=== PATIENT | female | born 1985 | race Caucasian/White ===

== ENCOUNTER 2021-11-09 12:27 | Emergency (ER) | payer MEDICAID, SELFPAY ==
[2021-11-09 12:32] VITALS: BP 136/90; PULSE 114; RESP 18; TEMP 35.8; O2SAT 97; BMI 35.2
--- NOTE | 2021-11-09 13:14 | PC.NURSE ---
labs collected by lab
--- NOTE | 2021-11-09 13:14 | ED.GENADULT ---
HPI - General Adult General Time Seen by Provider: 13:14 Date Seen: 11/09/21 Chief complaint: Abdominal Pain Stated complaint: Liver damage, stomach pain Time Seen by Provider: 11/09/21 12:37 Source: patient History of Present Illness HPI narrative: Family is a 36-year-old female past medical history includes alcohol abuse presents to the emergency department with mother with abdominal pain. Patient states that her last drink was about a month ago, she has no history of withdrawals or withdrawal seizures. She saw her primary care provider 2 weeks ago, she wanted to be prescribed naltrexone but when she checked her liver function tests they were elevated she did not start the medication, she was taken off all her [id number] medications. She stated that if you develop any abdominal pain nausea vomiting to be seen in the emergency department. Patient states yesterday around dinner time she developed some epigastric pain, pain is bloating sensation, no radiation, she denies any nausea vomiting, she has been eating and drinking., she does smoke half a pack every 2 days, no other drug use, she denies any bloody or black stools, she had a bowel movement today which was normal. She denies any urinary complaints. She has no upper respiratory complaints, she denies any chest pain or shortness of breath, she has not had any fevers chills myalgias arthralgias. No sick contacts. She called the RN instructed her to come to the emergency department. Related Data Home Medications Medication Instructions Recorded Confirmed hydroxyzine HCl 10 mg tablet mg 11/09/21 Previous Rx's Medication Instructions Recorded pantoprazole 40 mg tablet,delayed 40 mg PO DAILY #10 tab 11/09/21 release (Protonix) Allergies Allergy/AdvReac Type Severity Reaction Status Date / Time No Known Drug Allergies Allergy Verified 11/09/21 12:36 Review of Systems Status of ROS: Reports: 10 or more systems reviewed and unremarkable except as noted in History and below PFSH PFS Social History Smoking Status: Unknown if ever smoked Non-prescribed substance use: denies use service: No Exam Narrative: Exam Narrative: General: Nontoxic in appearance, no apparent distress HEENT: Pupils equal round and reactive to light conjunctiva normal, extraocular muscles intact Neck: Supple, no lymphadenopathy Lungs: Clear to auscultation bilaterally Heart: Sinus tachycardia Abdomen: Distended, soft, bowel sounds normal, mild tenderness to palpation in the lower epigastric region, no rebound or guarding Muscle skeletal: No lower extremity edema, +5 strength upper lower extremities : Neuro alert awake and oriented x3, gait within normal limits Psych: Mood and affect normal Const: Vital Signs, click to edit/add: Vital Signs - 24 hr 11/09/21 12:32 Temperature 96.4 F L Pulse Rate [Pulse Oximeter] 114 H Respiratory Rate 18 Blood Pressure [Ri ght Upper Arm] 136/90 H Pulse Oximetry 97 Course Course Hospital Course: 1:00 PM: AIDET performed, vitals show mild tachycardia, no signs of withdrawal, patient has been eating and drinking normally, suspect a gastritis, less likely gallbladder or pancreatitis. Patient wants limited medications at this time, will give her a GI cocktail, and check her LFTs, lipase, CBC, CRP, urinalysis urine test. We will await lab results to see if further imaging will be obtained, patient has minimal pain at this time. Differential diagnosis include appendicitis, aortic aneurysm, mesentery ischemia, bowel perforation, ectopic , volvulus and bowel obstruction. Other differential diagnosis included IBD, cholecystitis pancreatitis hepatitis gastritis GERD diverticulitis PUD pyelonephritis UTI renal colic stone PID, ovarian cyst torsion as well as other etiologies. Reevaluation(s) Reevaluation #1: Patient was updated on her lab and urinalysis results, CBC showed hemoglobin 11.3, no leukocytosis, urinalysis showed no signs of infection, metabolic panel, LFTs mildly elevated AST of 47, ALT at 77, improved from previous, normal bilirubin and albumin. Electrolytes and kidney function within normal limits, she was given the above care and her pain resolved. Plan would be to discharge prescription for Protonix 40 mg to be taken 30 minutes before meals daily for 10 days, she could pick up worker some Mylanta or Maalox the use every 2-4 hours for pain in addition. To follow-up with primary care provider this Friday, reasons to return were given Time: 14:12 Vital Signs Vital signs: Initial Vital Signs Temperature 96.4 F L 11/09/21 12:32 Temperature Source Temporal Artery Scan 11/09/21 12:32 Pulse Rate 114 H 11/09/21 12:32 Respiratory Rate 18 11/09/21 12:32 Blood Pressure 136/90 H 11/09/21 12:32 Blood Pressure Mean 105 11/09/21 12:32 Blood Pressure Position Supine 11/09/21 12:32 Pulse Oximetry 97 11/09/21 12:32 Oxygen Delivery Method 11/09/21 12:32 Vital Signs Temperature 96.4 F L 11/09/21 12:32 Pulse Rate 114 H 11/09/21 12:32 Respiratory Rate 18 11/09/21 12:32 Blood Pressure 136/90 H 11/09/21 12:32 Pulse Oximetry 97 11/09/21 12:32 Temperature 96.4 F L 11/09/21 12:32 Pulse Rate 114 H 11/09/21 12:32 Respiratory Rate 18 11/09/21 12:32 Blood Pressure 136/90 H 11/09/21 12:32 Pulse Oximetry 97 11/09/21 12:32 Medical Decision Making Lab Data Labs: Lab Results 11/09/21 11/09/21 11/09/21 Range/Units 13:05 13:05 13:05 WBC 7.75 (4.50-11.00) K/uL RBC 3.67 L (4.00-5.20) m/uL Hgb 11.3 L (12.0-16.0) gm/dL Hct 35.1 (33.0-51.0) % MCV 96 (80-100) fL MCH 31 (26-34) pg MCHC 32 (32-36) gm/dL RDW Coeff of Ella 15.1 (11.5-15.5) % Plt Count 375 (140-440) K/uL Neut % (Auto) 65.6 (42.0-72.0) % Lymph % (Auto) 24.0 (20-44) % [place] % (Auto) 6.5 (0.0-11.0) % Eos % (Auto) 2.3 (0.0-7.0) % Baso % (Auto) 0.8 (0.0-3.0) % Neut # (Auto) 5.09 (1.7-7.0) K/uL Lymph # (Auto) 1.86 (0.90-2.90) K/uL [place] # (Auto) 0.50 (0.00-0.90) K/UL Eos # (Auto) 0.18 (0.00-0.50) K/uL Baso # (Auto) 0.06 (0.00-0.30) K/uL Abs Immat Gran (auto) 0.06 (0.00-0.30) K/uL Sodium 137 (135-149) mmol/L Potassium 4.0 (3.6-5.1) mmol/L Chloride 106 (96-114) mmol/L Carbon Dioxide 25 (20-32) mmol/L BUN 6 (5-24) mg/dL Creatinine 0.5 (0.5-1.5) mg/dL Estimated Creat Clear 109.58 Estimated GFR 123 ml/min Glucose 145 H (60-115) mg/dL Calcium 9.5 (8.4-10.6) mg/dL Total Bilirubin 0.1 (0.1-1.5) mg/dL AST 47 H (12-35) U/L ALT 77 H (4-35) U/L Alkaline Phosphatase 94 (40-150) U/L C-Reactive Protein 2.1 H (0.5-1.0) mg/dL C-React Prot High Sens Cancelled Total Protein 7.4 (6.0-8.3) g/dL Albumin 4.3 (3.3-5.0) g/dL Lipase 54 (23-300) U/L Urine Color (Yellow) Urine Appearance (Clear) Urine pH (5.0-8.5) Ur Specific [place] (1.000-1.030) Urine Protein (Negative) Urine Glucose (UA) (Negative) Urine Ketones (Negative) Urine Blood (Negative) Urine Nitrite (Negative) Urine Bilirubin (Negative) Urine Urobilinogen (0.2-1.0) Ur Leukocyte Esterase (Negative) Urine RBC (0-2) Urine WBC (0-5) Ur Squamous Epith Cells (None-Few) Amorphous Sediment (None) Urine Bacteria (None) Urine Trichomonas 11/09/21 Range/Units 13:10 WBC (4.50-11.00) K/uL RBC (4.00-5.20) m/uL Hgb (12.0-16.0) gm/dL Hct (33.0-51.0) % MCV (80-100) fL MCH (26-34) pg MCHC (32-36) gm/dL RDW Coeff of Ella (11.5-15.5) % Plt Count (140-440) K/uL Neut % (Auto) (42.0-72.0) % Lymph % (Auto) (20-44) % [place] % (Auto) (0.0-11.0) % Eos % (Auto) (0.0-7.0) % Baso % (Auto) (0.0-3.0) % Neut # (Auto) (1.7-7.0) K/uL Lymph # (Auto) (0.90-2.90) K/uL [place] # (Auto) (0.00-0.90) K/UL Eos # (Auto) (0.00-0.50) K/uL Baso # (Auto) (0.00-0.30) K/uL Abs Immat Gran (auto) (0.00-0.30) K/uL Sodium (135-149) mmol/L Potassium (3.6-5.1) mmol/L Chloride (96-114) mmol/L Carbon Dioxide (20-32) mmol/L BUN (5-24) mg/dL Creatinine (0.5-1.5) mg/dL Estimated Creat Clear Estimated GFR ml/min Glucose (60-115) mg/dL Calcium (8.4-10.6) mg/dL Total Bilirubin (0.1-1.5) mg/dL AST (12-35) U/L ALT (4-35) U/L Alkaline Phosphatase (40-150) U/L C-Reactive Protein (0.5-1.0) mg/dL C-React Prot High Sens Total Protein (6.0-8.3) g/dL Albumin (3.3-5.0) g/dL Lipase (23-300) U/L Urine Color Yellow (Yellow) Urine Appearance Clear (Clear) Urine pH 6.5 (5.0-8.5) Ur Specific [place] 1.015 (1.000-1.030) Urine Protein 1+ A (Negative) Urine Glucose (UA) Negative (Negative) Urine Ketones Negative (Negative) Urine Blood Negative (Negative) Urine Nitrite Negative (Negative) Urine Bilirubin Negative (Negative) Urine Urobilinogen 0.2 (0.2-1.0) Ur Leukocyte Esterase Negative (Negative) Urine RBC 0-2 (0-2) Urine WBC 0-2 (0-5) Ur Squamous Epith Cells Many A (None-Few) Amorphous Sediment Moderate A (None) Urine Bacteria None (None) Urine Trichomonas TNP Discharge Plan Discharge Clinical Impression: Abdominal bloating, History of alcohol abuse, Acute epigastric pain Patient Disposition: Home, Self-Care Instructions: Abdominal Pain (ED) Additional Instructions: To take the Protonix 40 mg in the morning 30 minutes before eating, for 10 days, can add Maalox or Mylanta during the day. To follow up as scheduled with primary on Friday. Return precautions given. Activity Level: Activity as Tolerated Prescriptions: New pantoprazole [Protonix] 40 mg tablet,delayed release (DR/EC) 40 mg PO DAILY Qty: 10 2RF No Action hydroxyzine HCl 10 mg tablet 0RF Label Comments: Take 1-2 Tablets (10-20 mg) by mouth every 6 hours if needed for Itching Follow Up/Referrals: Zuri Baig DO [Primary Care Provider] - Stand Alone Forms: MyHealth Info Instructions
[2021-11-09 13:18] LABS: Appearance Urine Clear (Clear); Bilirubin Urine Negative (Negative); Blood Urine Negative (Negative); Color Urine Yellow (Yellow); Glucose Urine Negative (Negative); Ketones Urine Negative (Negative); Leukocyte Esterase Urine Negative (Negative); Nitrite Urine Negative (Negative); Protein Urine 1+ (Negative); Specific Gravity Urine 1.015 (1.000-1.030); Urobilinogen Urine 0.2 (0.2-1.0); pH Urine 6.5 (5.0-8.5)
[2021-11-09 13:26] LABS: Basophils Absolute Auto 0.06 K/uL (0.00-0.30); Basophils Percent Auto 0.8 % (0.0-3.0); Eosinophils Absolute Auto 0.18 K/uL (0.00-0.50); Eosinophils Percent Auto 2.3 % (0.0-7.0); Hematocrit 35.1 % (33.0-51.0); Hemoglobin* 11.3 gm/dL (12.0-16.0); Immature Granulocytes Abs Auto 0.06 K/uL (0.00-0.30); Lymphocytes Absolute Auto 1.86 K/uL (0.90-2.90); Mean Corpuscular HGB Conc 32 gm/dL (32-36); Mean Corpuscular Hemoglobin 31 pg (26-34); Mean Corpuscular Volume 96 fL (80-100); Monocytes Percent Auto 6.5 % (0.0-11.0); Neutrophils Absolute Auto 5.09 K/uL (1.7-7.0); Neutrophils Percent Auto 65.6 % (42.0-72.0); Platelet Count* 375 K/uL (140-440); RDW Coefficient of Variation % 15.1 % (11.5-15.5); Red Blood Count 3.67 m/uL (4.00-5.20); White Blood Count* 7.75 K/uL (4.50-11.00)
[2021-11-09] MEDS: GI COCKTAIL (VISC LIDO/ANTACID) 30 ML PO (13:26)
[2021-11-09 13:28] LABS: RBC Urine 0-2 (0-2); WBC Urine 0-2 (0-5)
[2021-11-09 13:28] LABS: Slide Review Reflex No
[2021-11-09 13:29] LABS: Amorphous Sediment Urine Moderate; Squamous Epithelial Cell Urine Many (None-Few)
[2021-11-09 13:41] LABS: Albumin* 4.3 g/dL (3.3-5.0); Chloride* 106 mmol/L (96-114); Sodium* 137 mmol/L (135-149)
[2021-11-09 13:43] LABS: Creatinine* 0.5 mg/dL (0.5-1.5); Est. Creatinine Clearance* 109.58; Estimated Glomerular Filt Rate 123 ml/min
[2021-11-09 13:44] LABS: Alanine Aminotransferase* 77 U/L (4-35); Alkaline Phosphatase* 94 U/L (40-150); Aspartate Amino Transferase* 47 U/L (12-35); Bilirubin Total* 0.1 mg/dL (0.1-1.5); Blood Urea Nitrogen* 6 mg/dL (5-24); Calcium* 9.5 mg/dL (8.4-10.6); Carbon Dioxide* 25 mmol/L (20-32); Glucose* 145 mg/dL (60-115); Lipase* 54 U/L (23-300); Total Protein* 7.4 g/dL (6.0-8.3)
[2021-11-09 13:55] LABS: C Reactive Protein* 2.1 mg/dL (0.5-1.0)
== END 2021-11-09 14:30 | disposition home or self-care (01) ==
LOC: ED 14:21
PROVIDERS: Emergency Provider Student in an Organized Health Care Education/Training Program; PCP Family Medicine
DX: R14.0 Abdominal distension (gaseous) (principal)
CPT/HCPCS: 36415; 80053; 81003; 81015; 83690; 85025; 86140; 86141; 99283; 99284; A9270

== ENCOUNTER 2023-03-12 00:51 | Emergency (ER) | payer MEDICAID, SELFPAY ==
[2023-03-12 01:02] VITALS: BP 119/83; PULSE 119; RESP 20; TEMP 36.4; O2SAT 94; BMI 35.2
--- NOTE | 2023-03-12 01:23 | ED.GENADULT ---
HPI - General Adult General Chief complaint: Urogenital Problems, Female Stated complaint: Foreign object -Private Time Seen by Provider: 03/12/23 01:08 Source: patient Mode of arrival: ambulatory Limitations: no limitations History of Present Illness HPI narrative: 37-year-old female presents the emergency department with 2-3 hours of a retained tampon. She reports that she was having intimate relations with a consensual partner. They had planned anal intercourse as she was on her menstrual cycle. Somehow, vaginal penetration occurred and the tampon was pushed further into the vaginal orifice, there was no pain associated with this. Patient reports that she was unable to retrieve the tampon and presents to the emergency room. There been no signs of infection, there is no abdominal pain, no severe bleeding. She has no other concerns at this time. Reports that her past medical history is benign, no allergies, no other recent illness. Related Data Home Medications Medication Instructions Recorded Confirmed No Known Home Medications 03/12/23 03/12/23 Allergies Allergy/AdvReac Type Severity Reaction Status Date / Time No Known Drug Allergies Allergy Verified 03/12/23 01:07 PFSH PFS Social History Smoking Status: Unknown if ever smoked Non-prescribed substance use: denies use service: No Exam Const: Vital Signs, click to edit/add: Vital Signs - 24 hr 03/12/23 01:02 Temperature 97.5 F L Pulse Rate [Pulse Oximeter] 119 H Respiratory Rate 20 Blood Pressure [Ri ght Upper Arm] 119/83 Pulse Oximetry 94 Oxygen Delivery Me thod Room Air Documenting provider has reviewed patient's vital signs: yes Common normals: no apparent distress and alert HENMT: Common normals: normocephalic Head and scalp: normocephalic Face and sinus: normal facial exam Eye: General eye: normal appearance of both eyes : Other: Normal appearing external genitalia. Vaginal speculum is inserted and easily visualize normal appearing tampon turned sideways in the vaginal vault, stringy easily visible. It is grasped with ring forceps and easily removed. Vaginal garcia were then inspected with no further signs of foreign body. No signs of bleeding, infection, odor or abnormal discharge. Speculum is removed, well tolerated. Neuro: Sensorium/orientation: alert Motor exam: no movement abnormalities noted Psych: Attitude: engaged Insight: insight good Judgement: judgment good Skin: Narrative: Eczema on Flexeril surfaces but no signs of secondary infection Course Course ED Course: Retained tampon removed with no difficulty, no further signs of foreign body noted. Patient counseled on signs and symptoms of infection. Do not recommend anything in the vagina for the next 12 hours but then may resume normal hygiene products and care. Alarm symptoms reviewed that would warrant 80 presentation, she verbalizes understanding and agreement Vital Signs Vital signs: Initial Vital Signs Temperature 97.5 F L 03/12/23 01:02 Temperature Source Temporal Artery Scan 03/12/23 01:02 Pulse Rate 119 H 03/12/23 01:02 Pulse Rhythm Regular 03/12/23 01:02 Pulse Strength 3+ Normal 03/12/23 01:02 Respiratory Rate 20 03/12/23 01:02 Blood Pressure 119/83 03/12/23 01:02 Blood Pressure Mean 95 03/12/23 01:02 Blood Pressure Position Sitting 03/12/23 01:02 Pulse Oximetry 94 03/12/23 01:02 Oxygen Delivery Method Room Air 03/12/23 01:02 Vital Signs Temperature 97.5 F L 03/12/23 01:02 Pulse Rate 119 H 03/12/23 01:02 Respiratory Rate 20 03/12/23 01:02 Blood Pressure 119/83 03/12/23 01:02 Pulse Oximetry 94 03/12/23 01:02 Oxygen Delivery Method Room Air 03/12/23 01:02 Temperature 97.5 F L 03/12/23 01:02 Pulse Rate 119 H 03/12/23 01:02 Respiratory Rate 20 03/12/23 01:02 Blood Pressure 119/83 03/12/23 01:02 Pulse Oximetry 94 03/12/23 01:02 Oxygen Delivery Method Room Air 03/12/23 01:02 Discharge Plan Discharge Clinical Impression: Retained tampon Patient Disposition: Home, Self-Care Condition: Improved Instructions: Vaginal Foreign Body (ED) Additional Instructions: As we discussed, the tampon was easily removed, there were no other signs of foreign body. Since the tampon was only in a few hours, it does not need antibiotics. As we discussed, I would recommend nothing in the vagina for 12 hours but then you may resume typical hygiene products and activity. If you start to notice any severe discharge or signs of infection, make a follow-up appointment in the clinic within a few days. Activity Level: No Restrictions Discharge Diet: Regular Prescriptions: No Action No Known Home Medications Follow Up/Referrals: Zuri Baig DO [Primary Care Provider] - Stand Alone Forms: MyHealth Info Instructions
== END 2023-03-12 01:38 | disposition home or self-care (01) ==
LOC: ED 01:37
PROVIDERS: Emergency Provider Family Medicine; PCP Family Medicine
DX: T19.2XXA Foreign body in vulva and vagina, initial encounter (principal); W44.8XXA Other foreign body entering into or through a natural orifice, initial encounter
CPT/HCPCS: 99283

== ENCOUNTER 2024-02-28 11:18 | Inpatient (IN) | payer MEDICAID, SELFPAY ==
[2024-02-28] VITALS (25 sets, daily range): BP systolic 120–158; BP diastolic 74–99; PULSE 103–122; RESP 18–28; TEMP 36.2–37.1; O2SAT 97–100; BMI 37.5; BMI 32.5
--- NOTE | 2024-02-28 11:52 | CRLHL7_ITS ---
For Patients: As a result of the Century Cures Act, medical imaging exams and procedure reports are released immediately into your electronic medical record. You may view this report before your referring provider. If you have questions, please contact your health care provider. INDICATION: Vomiting. Right upper quadrant abdominal pain. TECHNIQUE: Right upper quadrant ultrasound. FINDINGS: Cholelithiasis. There is a large gallstone within the gallbladder measuring 4.1 x 1.1 x 2.7 cm. The gallbladder wall measures 1.5 mm. No pericholecystic fluid. 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 Enlarged echogenic liver which could reflect fatty infiltration or other intrinsic hepatic parenchymal process. The proximal aorta and IVC are normal. The proximal aorta measures 2.3 cm. The right kidney is negative for obstruction. It measures 10.3 x 4.7 x 4.6 cm. The right renal cortex measures 1.4 cm. The pancreas although incompletely visualized is normal where seen. The tail is obscured by bowel gas. The main portal vein is patent with flow in the normal direction. IMPRESSION: 1. Cholelithiasis. Possible cholecystitis given the positive sonographic Desir`s sign. Clinical and laboratory correlation are recommended. Surgical consultation is warranted. 2. Mildly enlarged echogenic liver likely related to fatty infiltration or other intrinsic hepatic parenchymal process. 3. Incomplete visualization of the pancreas. No upper abdominal ascites. No hydronephrosis of the right kidney. Dictated by Cj Card MD @ 02/28/2024 2:13:58 PM (Electronically Signed)
--- NOTE | 2024-02-28 11:54 | ED.GENADULT ---
HPI - General Adult General Chief complaint: Abdominal Pain Stated complaint: abd pain, vomiting Time Seen by Provider: 02/28/24 11:32 History of Present Illness HPI narrative: This 38-year-old female comes in because of vomiting over the past couple days. She is reporting right upper quadrant abdominal pain. She states that she has not been able to take food or much drink during this time. She arrives here with normal temperature but does have tachycardia with a rate at 122 beats per minute. She does not report any fever. Related Data Home Medications ?Medication ?Instructions ?Recorded ?Confirmed No Known Home Medications 03/12/23 02/28/24 Allergies Allergy/AdvReac Type Severity Reaction Status Date / Time No Known Drug Allergies Allergy Verified 02/28/24 11:40 Review of Systems Status of ROS: Reports: 10 or more systems reviewed and unremarkable except as noted in History and below Narrative: Constitutional: No fevers, no weight gain or loss. Eyes: No discharge. No vision changes. HENT: No congestion, no sore throat, no ear pain. Cardiovascular: No chest pain, no palpitations. Respiratory: No shortness of breath, no wheezes, no cough. Gastrointestinal: Right upper quadrant abdominal pain with persistent nausea and vomiting. No diarrhea. Genitourinary: No dysuria, no hematuria. Musculoskeletal: Normal range of motion. Skin: No rashes, no pruritis. Neurological: No dizziness, weakness, sensory change, speech change. Endo/Heme/Allergies: No bruising or bleeding. No polydipsia. Pysch: no suicidality, no anxiety, no insomnia. All other systems reviewed and are negative. [facility] Social History Smoking Status: Current every day smoker What tobacco products do you use: cigarettes Smoking packs per day: 0.5 Smoking cigarettes per day: 10.0 Years smoked: 25 Smoking pack-years: 12.50 Second hand tobacco smoke exposure: No How often do you have a drink containing alcohol: 2-3 times a week How many standard drinks containing alcohol do you have on a typical day: 5 or 6 How often do you have six or more drinks on one occasion: Less than monthly AUDIT-C Alcohol total score: 6 Non-prescribed substance use: marijuana (any form) service: No Exam Narrative: Exam Narrative: Constitutional: Well-developed, well-nourished, no acute distress. HEENT: Normocephalic, atraumatic. Neck: Normal range of motion. Nontender. Supple. Heart: Regular. No murmurs. Normal rate. Intact distal pulses. Lungs: Clear to auscultation. No chest discomfort. No wheezes, rhonchi, or rales. Abdomen: Normal bowel sounds. Right upper quadrant tenderness. Rovsing sign is negative. No rebound tenderness. Genitalia: Deferred. Back: No midline tenderness. Normal range of motion. Extremities: Normal range of motion. No injury. Skin: Intact. Warm. No erythema or pallor. Skin changes typical of psoriasis. Neurologic: No altered sensation. No weakness. Alert and oriented. Psychiatric: No suicidality. No anxiety or depression. No insomnia. Nursing notes and vitals signs are reviewed. Const: Vital Signs, click to edit/add: Vital Signs - 24 hr 02/28/24 11:40 02/28/24 13:00 02/28/24 13:15 Temperature 97.2 F L Pulse Rate [Pulse Oximeter] 122 H 114 H 110 H Respiratory Rate 24 28 H 24 Blood Pressure [Ri t Upper Arm] 120/86 147/76 H Pulse Oximetry 100 100 100 Oxygen Delivery Me thod Room Air Room Air Room Air Course Vital Signs Vital signs: Initial Vital Signs Temperature 97.2 F L 02/28/24 11:40 Temperature Source Temporal Artery Scan 02/28/24 11:40 Pulse Rate 122 H 02/28/24 11:40 Pulse Rhythm Regular 02/28/24 11:40 Respiratory Rate 24 02/28/24 11:40 Blood Pressure 120/86 02/28/24 11:40 Blood Pressure Mean 97 02/28/24 11:40 Blood Pressure Position Sitting 02/28/24 11:40 Pulse Oximetry 100 02/28/24 11:40 Oxygen Delivery Method Room Air 02/28/24 11:40 Vital Signs Temperature 97.2 F L 02/28/24 11:40 Pulse Rate 122 H 02/28/24 11:40 Respiratory Rate 24 02/28/24 11:40 Blood Pressure 120/86 02/28/24 11:40 Pulse Oximetry 100 02/28/24 11:40 Oxygen Delivery Method Room Air 02/28/24 11:40 Temperature 97.2 F L 02/28/24 11:40 Pulse Rate 110 H 02/28/24 13:15 Respiratory Rate 24 02/28/24 13:15 Blood Pressure 147/76 H 02/28/24 13:15 Pulse Oximetry 100 02/28/24 13:15 Oxygen Delivery Method Room Air 02/28/24 13:15 Medications Administered Medications: Generic Name Dose Route Start Last Admin Trade Name Freq PRN Reason Stop Dose Admin Sodium Chloride 1,000 mls @ 1,000 mls/hr 02/28/24 14:00 02/28/24 14:04 0.9 % Sodium Chloride 1000 Ml IV 02/28/24 14:59 1,000 mls/hr .Q1H LOGAN Administration Discontinued Medications Generic Name Dose Route Start Last Admin Trade Name Freq PRN Reason Stop Dose Admin Hydromorphone HCl 0.5 mg 02/28/24 12:55 02/28/24 12:59 Hydromorphone 0.5 Mg/0.5 Ml Inj IVP 02/28/24 12:56 0.5 mg ONCE ONE Administration Sodium Chloride 500 mls @ 500 mls/hr 02/28/24 11:52 02/28/24 12:29 0.9 % Sodium Chloride 500 Ml IV 02/28/24 12:51 500 mls/hr .Q1H ONE Administration Sodium Chloride 500 mls @ 500 mls/hr 02/28/24 12:55 02/28/24 13:00 0.9 % Sodium Chloride 500 Ml IV 02/28/24 13:54 500 mls/hr .Q1H ONE Administration Ondansetron HCl 4 mg 02/28/24 11:52 02/28/24 12:29 Ondansetron 2 Mg/Ml Inj IVP 02/28/24 11:53 4 mg ONCE ONE Administration Ondansetron HCl 4 mg 02/28/24 12:55 02/28/24 13:00 Ondansetron 2 Mg/Ml Inj IVP 02/28/24 12:56 4 mg ONCE ONE Administration Medical Decision Making MDM Narrative Medical decision making narrative: This patient comes in with severe right upper quadrant abdominal pain and persistent nausea and vomiting. She states symptoms began a couple days ago. She does have a history of alcohol use and abuse. She states that she has taken alcohol more recently. Her symptoms were suspicious for gallstone disease so ultrasound of the right upper quadrant is obtained and does show a large stone in the gallbladder that appears to be nonobstructive. Labs are acquired and her white count is in normal range. She is not showing any sign of cholecystitis. However there is significant elevation of her lipase typical of pancreatitis. Whether this is coming from her gallstone or alcohol abuse is uncertain. Additionally her liver enzymes are a bit elevated and her bicarb is less than 5 with an anion gap. Her glucose returns at around 170. She is not on any medications and does not have a history of diabetes. The patient did receive a total of 2 L of normal saline intravenously here in the emergency department. She did arrive with tachycardia and heart rate around 120 beats per minute. This is improved after receiving fluids. The patient also received 2 doses of Zofran and 1 dose of Dilaudid 0.5 mg. This brought sufficient relief of her symptoms. I did speak with Dr. Pittman, surgeon on-call, regarding these findings. She will plan to connect with her tomorrow morning and consider cholecystectomy. I also spoke with the hospitalist who agrees to her admission into the hospital for ongoing management. Lab Data Labs: Lab Results 02/28/24 02/28/24 Range/Units 12:25 14:05 WBC 9.23 (4.50-11.00) K/uL RBC 4.80 (4.00-5.20) m/uL Hgb 13.7 (12.0-16.0) gm/dL Hct 45.5 (33.0-51.0) % MCV 95 (80-100) fL MCH 29 (26-34) pg MCHC 30 L (32-36) gm/dL RDW Coeff of Ella 16.2 H (11.5-15.5) % Plt Count 245 (140-440) K/uL Neut % (Auto) 79.2 H (42.0-72.0) % Lymph % (Auto) 9.0 L (20-44) % Baker % (Auto) 7.6 (0.0-11.0) % Eos % (Auto) 0.1 (0.0-7.0) % Baso % (Auto) 0.4 (0.0-3.0) % Neut # (Auto) 7.30 H (1.7-7.0) K/uL Lymph # (Auto) 0.80 L (0.90-2.90) K/uL Baker # (Auto) 0.70 (0.00-0.90) K/UL Eos # (Auto) 0.01 (0.00-0.50) K/uL Baso # (Auto) 0.04 (0.00-0.30) K/uL Abs Immat Gran (auto) 0.34 H (0.00-0.30) K/uL Imm/Tot Granulo (auto) 3.7 % Diff Slide Review Acceptable Review (Acceptable) Sodium 133 L (135-149) mmol/L Potassium 4.7 (3.6-5.1) mmol/L Chloride 99 (96-114) mmol/L Carbon Dioxide < 5 L* (20-32) mmol/L Anion Gap 29 H (7-15) mEq/L BUN 10 (5-24) mg/dL Creatinine 1.2 (0.5-1.5) mg/dL Estimated Creat Clear 44.76 Estimated GFR 59 ml/min Glucose 171 H (60-115) mg/dL Lactate 0.7 (0.5-1.9) mmol/L Calcium 10.1 (8.4-10.6) mg/dL Total Bilirubin 1.0 (0.1-1.5) mg/dL Direct Bilirubin 0.8 H (0.0-0.5) mg/dL AST 92 H (12-35) U/L ALT 101 H (4-35) U/L Alkaline Phosphatase 102 (40-150) U/L Total Protein 10.6 H (6.0-8.3) g/dL Albumin 6.2 H (3.3-5.0) g/dL Lipase 2379 H (23-300) U/L Imaging Data US - abdomen: Radiologist's impression: 1. Cholelithiasis. Possible cholecystitis given the positive sonographic Desir`s sign. Clinical and laboratory correlation are recommended. Surgical consultation is warranted. 2. Mildly enlarged echogenic liver likely related to fatty infiltration or other intrinsic hepatic parenchymal process. 3. Incomplete visualization of the pancreas. No upper abdominal ascites. No hydronephrosis of the right kidney. Discharge Plan Discharge Clinical Impression: Pancreatitis, Cholelithiasis Prescriptions: No Action No Known Home Medications Follow Up/Referrals: Zuri Baig DO [Primary Care Provider] -
[2024-02-28] MEDS: ONDANSETRON 2 MG/ML inj 4 MG IVP ×2 (12:29→13:00)
[2024-02-28] MEDS: 0.9 % SODIUM CHLORIDE 500 ML 500 ML IV ×2 (12:29→13:00)
[2024-02-28 12:30] LABS: Basophils Absolute Auto 0.04 K/uL (0.00-0.30); Basophils Percent Auto 0.4 % (0.0-3.0); Eosinophils Absolute Auto 0.01 K/uL (0.00-0.50); Eosinophils Percent Auto 0.1 % (0.0-7.0); Hematocrit 45.5 % (33.0-51.0); Hemoglobin* 13.7 gm/dL (12.0-16.0); Immature Granulocytes Abs Auto 0.34 K/uL (0.00-0.30); Immature Granulocytes Pct Auto 3.7 %; Mean Corpuscular HGB Conc 30 gm/dL (32-36); Mean Corpuscular Hemoglobin 29 pg (26-34); Mean Corpuscular Volume 95 fL (80-100); Monocytes Percent Auto 7.6 % (0.0-11.0); Neutrophils Percent Auto 79.2 % (42.0-72.0); Platelet Count* 245 K/uL (140-440); RDW Coefficient of Variation % 16.2 % (11.5-15.5); White Blood Count* 9.23 K/uL (4.50-11.00)
[2024-02-28 12:43] LABS: Chloride* 99 mmol/L (96-114); Potassium* 4.7 mmol/L (3.6-5.1); Sodium* 133 mmol/L (135-149)
[2024-02-28 12:45] LABS: Aspartate Amino Transferase* 92 U/L (12-35); Bilirubin Direct* 0.8 mg/dL (0.0-0.5); Creatinine* 1.2 mg/dL (0.5-1.5); Est. Creatinine Clearance* 44.76; Estimated Glomerular Filt Rate 59 ml/min; Total Protein* 10.6 g/dL (6.0-8.3)
[2024-02-28 12:46] LABS: Alanine Aminotransferase* 101 U/L (4-35); Alkaline Phosphatase* 102 U/L (40-150); Blood Urea Nitrogen* 10 mg/dL (5-24); Calcium* 10.1 mg/dL (8.4-10.6); Glucose* 171 mg/dL (60-115)
[2024-02-28 12:54] LABS: Anion Gap 29 mEq/L (7-15); Lipase* 2379 U/L (23-300)
[2024-02-28] MEDS: HYDROmorphone 0.5 mg/0.5 ml inj IVP ×4 (12:59→22:03)
[2024-02-28 13:18] LABS: Albumin* 6.2 g/dL (3.3-5.0)
[2024-02-28 13:23] LABS: Slide Review Reflex Yes
[2024-02-28 13:25] LABS: Slide Review Acceptable Review (Acceptable)
[2024-02-28 13:29] LABS: Carbon Dioxide* < 5 mmol/L (20-32)
[2024-02-28] MEDS: 0.9 % SODIUM CHLORIDE 1000 ml 1,000 ML IV ×2 (14:04→17:54)
[2024-02-28 14:11] LABS: Lactate* 0.7 mmol/L (0.5-1.9)
--- NOTE | 2024-02-28 14:39 | PM.IMHP1 ---
Hospitalist- H&P: HPI History of Present Illness Date Seen: 02/28/24 Chief complaint: abd pain, vomiting Narrative: Jessica Melara is a 38 year old female past medical history significant for alcohol use disorder, history of gastric ulcer without hemorrhage or perforation, vitamin B12 deficiency, migraine is admitted to medical floor from the ED for further management acute pancreatitis and cholelithiasis. Following further evaluation and workup upon arrival to floor, she is admitted to critical care unit for ketoacidosis. Patient is seen with at bedside. Reports onset of right upper quadrant abdominal pain, nausea with vomiting on Friday02/25/24. She has had unrelenting nausea with vomiting since that time, last vomiting in the ED. Has not had any solids in these 4 days. Has not attempted to drink liquids other than water which she vomits regardless. No diarrhea. Last small bowel movement was 02/26/2024. Abdominal pain is in the right upper quadrant, radiating into the posterior right side. Denies UTI symptoms or change in urine output. Has had occasional headaches, none now, denies dizziness. Denies recent fevers. Denies chest pain or shortness of breath. Has been tachycardic in the ED. No tachypnea. Afebrile. Patient reports her last alcohol intake was Friday02/22/2024. While she denies history of withdrawals or seizures, she was afraid these symptoms were related to withdrawal so did not come into the ED sooner. Alcohol use, 4-5 shots of whiskey daily when she can afford it. Rare occasional wine. Last alcohol intake Friday02/22/24. Denies history of seizures or withdrawals. Smokes tobacco, half pack every 2-3 days. Smokes marijuana, last use 4-6 weeks ago. Denies risk - tubal ligation. She is adopted, does not know family history. Review of Systems Narrative: REVIEW OF SYSTEMS: Complete review of systems performed and negative unless otherwise stated in HPI or below. [facility] Medical History (Updated 02/28/24 @ 17:13 by Farnaz Lyon PA-C) Hyperglycemia ?R73.9 - Hyperglycemia, unspecified (ICD-10) Obesity ?E66.9 - Obesity, unspecified (ICD-10) Migraines ?G43.909 - Migraine, unspecified, not intractable, without status migrainosus (ICD-10) Vitamin B12 deficiency ?E53.8 - Deficiency of other specified B group vitamins (ICD-10) History of gastric ulcer ?Z87.11 - Personal history of peptic ulcer disease (ICD-10) Alcohol use disorder ?F10.90 - Alcohol use, unspecified, uncomplicated (ICD-10) Social History What is your current living situation?: I presently have a place to live Problems where you live: no known problems Problems where you live details: NA In the past 12 months, utilities in danger of being shut off: no In the past 12 mos, have been you worried that your food would run out before you had money to buy more?: never true In the past 12 mos, the food you bought just didn't last and you didn't have money to buy more?: never true Highest level of school completed/degree received: Associate degree: occupational, technical, vocational program Smoking Status: Light tobacco smoker What tobacco products do you use: cigarettes Smoking packs per day: 0.5 Smoking cigarettes per day: 10.0 Years smoked: 25 Smoking pack-years: 12.50 Second hand tobacco smoke exposure: No How often do you have a drink containing alcohol: 4 or more times a week Alcohol type: hard liquor How many standard drinks containing alcohol do you have on a typical day: 5 or 6 How often do you have six or more drinks on one occasion: Weekly AUDIT-C Alcohol total score: 9 Non-prescribed substance use: marijuana (any form) Caffeine: No How often does anyone, including family, friends and others, physically hurt you: never How often does anyone, including family, friends and others, insult or talk down to you: never How often does anyone, including family, friends and others, threaten you with harm: never How often does anyone, including family, friends and others, scream or curse at you: never service: No Meds Home Medications and Allergies Home Medications ?Medication ?Instructions ?Recorded ?Confirmed ?Type No Known Home Medications 03/12/23 02/28/24 History Allergies Allergy/AdvReac Type Severity Reaction Status Date / Time No Known Drug Allergies Allergy Verified 02/28/24 11:40 Exam Narrative: Exam Narrative: PHYSICAL EXAM General: Pleasant, mildly anxious, appears uncomfortable with pain and nausea HEENT: Normocephalic, atraumatic, sclera white, EOMI, oral mucosa dry Cardiovascular: Tachycardic. No pitting edema Pulmonary: CTA bilaterally without rhonchi, rales, expiratory wheezes. No dyspnea on room air Abdominal: Soft, nondistended, tenderness right-side, greater in the right upper quadrant. Negative McBurney's Neurological: Alert, answering questions appropriately, cranial nerves intact, no focal findings Extremities: No gross joint deformity or swelling. AROMI. Neurovascularly intact Skin: Warm, dry. Several superficial excoriations (chronic picking) Const: Vital Signs, click to edit/add: Vital Signs - 24 hr 02/28/24 11:40 02/28/24 13:00 02/28/24 13:10 Temperature 97.2 F L Pulse Rate 112 H Pulse Rate [Pulse Oximeter] 122 H 114 H Respiratory Rate 24 28 H Blood Pressure Blood Pressure [Ri ght Upper Arm] 120/86 Pulse Oximetry 100 100 [facility] Air 02/28/24 13:15 02/28/24 13:15 02/28/24 13:18 Temperature Pulse Rate 111 H 112 H Pulse Rate [Pulse Oximeter] 110 H Respiratory Rate 24 24 Blood Pressure 147/87 H Blood Pressure [Ri ght Upper Arm] 147/76 H Pulse Oximetry 100 100 100 [facility] Room Air 02/28/24 13:31 02/28/24 13:32 02/28/24 13:45 Temperature Pulse Rate 110 H 108 H 110 H Pulse Rate [Pulse Oximeter] Respiratory Rate Blood Pressure 158/92 H Blood Pressure [Ri ght Upper Arm] Pulse Oximetry 100 100 100 [facility] 02/28/24 14:00 02/28/24 14:01 02/28/24 14:15 Temperature Pulse Rate 116 H 114 H 114 H Pulse Rate [Pulse Oximeter] Respiratory Rate Blood Pressure 141/99 H Blood Pressure [Ri ght Upper Arm] Pulse Oximetry 97 100 99 [facility] - H&P: Result Labs Labs: Short CBC 02/28/24 Range/Units 12:25 WBC 9.23 (4.50-11.00) K/uL Hgb 13.7 (12.0-16.0) gm/dL Hct 45.5 (33.0-51.0) % Plt Count 245 (140-440) K/uL BMP 02/28/24 12:25 Sodium 133 L Potassium 4.7 Chloride 99 Carbon Dioxide < 5 L* BUN 10 Creatinine 1.2 Glucose 171 H Calcium 10.1 Liver Function 02/28/24 Range/Units 12:25 Total Bilirubin 1.0 (0.1-1.5) mg/dL Direct Bilirubin 0.8 H (0.0-0.5) mg/dL AST 92 H (12-35) U/L ALT 101 H (4-35) U/L Alkaline Phosphatase 102 (40-150) U/L Albumin 6.2 H (3.3-5.0) g/dL Imaging RUQ US: Attestation: I have reviewed the pertinent imaging results. Radiologist's impression: Cholelithiasis. There is a large gallstone within the gallbladder measuring 4.1 x 1.1 x 2.7 cm. The gallbladder wall measures 1.5 mm. No pericholecystic fluid. Positive sonographic Desir`s sign according to the marble setter helper worksheet. Enlarged echogenic liver which could reflect fatty infiltration or other intrinsic hepatic parenchymal process. The proximal aorta and IVC are normal. The proximal aorta measures 2.3 cm. The right kidney is negative for obstruction. It measures 10.3 x 4.7 x 4.6 cm. The right renal cortex measures 1.4 cm. The pancreas although incompletely visualized is normal where seen. The tail is obscured by bowel gas. The main portal vein is patent with flow in the normal direction. IMPRESSION: 1. Cholelithiasis. Possible cholecystitis given the positive sonographic Desir`s sign. Clinical and laboratory correlation are recommended. Surgical consultation is warranted. 2. Mildly enlarged echogenic liver likely related to fatty infiltration or other intrinsic hepatic parenchymal process. 3. Incomplete visualization of the pancreas. No upper abdominal ascites. No hydronephrosis of the right kidney. Assessment and Plan Assessment and plan (1) Pancreatitis: Problem comment: -h/o current alcohol use disorder -RUQ pain, n/v x 4 days, unable to keep water down (no solids or electrolytes attempted), last normal BM 02/25 -lipase 2379, direct bili 0.8, AST 92, ALT 101. Pancreas not well visualized on RUQ US -mag 2.8, phos 3.8 -IVF, NPO, pain and nausea management prn, IV PPI (remote h/o gastric ulcer) -follow labs Status: Acute (2) Alcohol use disorder: Problem comment: -whiskey, 4-5 shots daily when she can afford it. Occasional glass of wine. Last ETOH intake Wednesday 02/21 -ETOH from ED draw added -denies h/o withdrawals, seizures -[facility] protocol -thiamine, folic acid, MVI -SS for CD eval Status: Acute (3) Cholelithiasis: Problem comment: -RUQ ultrasound shows Cholelithiasis. There is a large gallstone within the gallbladder measuring 4.1 x 1.1 x 2.7 cm. The gallbladder wall measures 1.5 mm. No pericholecystic fluid. Positive sonographic Desir`s sign according to the marble setter helper worksheet. No evidence of obstruction -afebrile, no leukocytosis, lactate 0.7 -ED provider discussed with General Surgery, Dr. Pittman. Consult in a.m. -consider further imaging with CT if new or worsening symptoms or no resolve Status: Acute (4) Ketoacidosis: Problem comment: -serum CO2 <5, anion gap 29 -> 22, creatinine 1.2, GFR 59, K+ 4.7, glucose 171, lactate 0.7, urine ketones +4, urine glucose negative -VBG added from ED draw 7.055 ->7.086, pCO2 22 ->18, pO2 35.1, HCO3 6 -suspected etiology starvation, h/o ETOH abuse -NS bolus = 2L in ED, continue boluses on floor, trending labs, monitoring electrolytes with replacement as needed, maintenance fluids Status: Acute (5) Metabolic acidosis: Problem comment: -serum CO2 <5, anion gap 29, creatinine 1.2, GFR 59, glucose 171, lactate 0.7 -acute pancreatitis, vomiting with poor oral intake x 4 days -VBG ordered, UA, repeat BMP following IVF -continue IVF, monitor labs Status: Acute (6) Fatty liver: Problem comment: -abnormal liver panel -RUQ US shows mildly enlarged echogenic liver likely related to fatty infiltration or other intrinsic hepatic parenchymal process Status: Acute (7) Hyperglycemia: Problem comment: -glucose in ED 171, 2 years ago 145. Urine negative glucose -H/o gestational diabetes with 3rd , unknown family history (adopted). A1c 5.0 Status: Acute Total Time Spent Total Time Spent: Total time spent caring for the patient today was 75 minutes. This includes time spent for the visit reviewing the chart, time spent during the visit, time spent after the visit and documentation and planning in coordination of care.
[2024-02-28] MEDS: PROCHLORPERAZINE 5 MG/ML VIAL 10 MG IV (15:45)
[2024-02-28 15:47] LABS: Appearance Urine Clear (Clear); Bilirubin Urine 3+ (Negative); Blood Urine 2+ (Negative); Color Urine Yellow (Yellow); Glucose Urine Negative (Negative); Ketones Urine 4+ (Negative); Leukocyte Esterase Urine Negative (Negative); Nitrite Urine Negative (Negative); Protein Urine 3+ (Negative); Specific Gravity Urine >= 1.030 (1.000-1.030); Urobilinogen Urine 0.2 (0.2-1.0); pH Urine 5.5 (5.0-8.5)
[2024-02-28 15:54] LABS: HCO3 VBG 6 mmol/L (21-28); PCO2 VBG 22 mmHG (40-50); PO2 VBG 35.1 mmHG (25-47); pH VBG 7.055 (7.32-7.43)
[2024-02-28 15:57] LABS: Magnesium* 2.8 mg/dL (1.5-2.6); Phosphorus* 3.8 mg/dL (2.5-4.5)
[2024-02-28 16:08] LABS: HCO3 VBG 5 mmol/L (21-28); PO2 VBG 80.2 mmHG (25-47)
[2024-02-28 16:12] LABS: pH VBG 7.086 (7.32-7.43)
[2024-02-28 16:14] LABS: PCO2 VBG 18 mmHG (40-50)
[2024-02-28 16:14] LABS: Bacteria Urine Few; WBC Urine 0-2 (0-5)
[2024-02-28 16:25] LABS: Chloride* 103 mmol/L (96-114); Potassium* 4.3 mmol/L (3.6-5.1); Sodium* 130 mmol/L (135-149)
[2024-02-28 16:28] LABS: Blood Urea Nitrogen* 8 mg/dL (5-24); Calcium* 8.5 mg/dL (8.4-10.6); Creatinine* 0.7 mg/dL (0.5-1.5); Est. Creatinine Clearance* 76.74; Estimated Glomerular Filt Rate 112 ml/min; Glucose* 116 mg/dL (60-115)
[2024-02-28 16:35] LABS: Anion Gap 22 mEq/L (7-15); Carbon Dioxide* < 5 mmol/L (20-32)
[2024-02-28 17:21] LABS: Amphetamine Screen Urine Negative (Negative); Barbiturate Screen Urine Negative (Negative); Benzodiazepines Screen Urine Negative (Negative); Cannabinoid Screen Urine POSITIVE (Negative); Cocaine Screen Urine Negative (Negative); Methadone Screen Urine Negative (Negative); Methamphetamines Screen Urine Negative (Negative); Opiate Screen Urine POSITIVE (Negative); Oxycodone Screen Urine Negative (Negative); Phencyclidine Screen Urine Negative (Negative); Tricyclic Antidepressant Urine POSITIVE (Negative)
[2024-02-28 17:36] LABS: Ethanol* < 0.01 % (0.01-0.03)
[2024-02-28] MEDS: PANTOPRAZOLE SODIUM 40 MG INJ IVP (17:55)
[2024-02-28 18:28] LABS: HCO3 VBG 8 mmol/L (21-28); PCO2 VBG 26 mmHG (40-50); PO2 VBG 47.5 mmHG (25-47)
[2024-02-28 18:46] LABS: Chloride* 104 mmol/L (96-114); Potassium* 3.6 mmol/L (3.6-5.1); Sodium* 130 mmol/L (135-149)
[2024-02-28 18:49] LABS: Anion Gap 20 mEq/L (7-15); Blood Urea Nitrogen* 8 mg/dL (5-24); Creatinine* 0.7 mg/dL (0.5-1.5); Est. Creatinine Clearance* 76.74; Estimated Glomerular Filt Rate 112 ml/min; Glucose* 94 mg/dL (60-115)
[2024-02-28 18:50] LABS: Calcium* 7.9 mg/dL (8.4-10.6)
[2024-02-28 18:54] LABS: pH VBG 7.072 (7.32-7.43)
[2024-02-28 18:55] LABS: Carbon Dioxide* 6 mmol/L (20-32)
[2024-02-28] MEDS: 0.9 % SODIUM CHLORIDE 1000 ml 1,000 ML 125 ML IV (18:57)
[2024-02-28] MEDS: POTASSIUM CHLORIDE 10 MEQ/100 ML PIGGYBACK 100 MEQ IVPB ×2 (18:58→20:04)
--- NOTE | 2024-02-28 19:21 | PC.NURSE ---
Nursing Care Hours: [id number] Pt arrived to unit alert and oriented, rating pain in RUQ at 7/10, treated per eMAR. Nausea treated per eMAR. Tachycardic and deep breaths at regular rate noted. Brand Planner also could smell sweet alcohol ketone smell and reported to hospitalist. Labs drawn and pt shown to be in ketoacidosis. Moved to critical care. Pt tearful and anxious when results and need to transfer to critical care discussed. Reassured pt and went over some education. Pt calmed down and breathing has decreased slightly to a regular depth by end of shift. Pt independent in room. Voided x2. NPO status explained to pt. Multiple open sores over face, UE, and abdomen. 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 Patches observed on bilat knees and ankles.
[2024-02-28] MEDS: THIAMINE 250 MG in 0.9 % SODIUM CHLORIDE 100 ml 100 ML 102.5 MG IVPB (21:04)
[2024-02-28 21:59] LABS: HCO3 VBG 8 mmol/L (21-28); PCO2 VBG 21 mmHG (40-50); PO2 VBG 91.9 mmHG (25-47)
[2024-02-28 22:24] LABS: Chloride* 107 mmol/L (96-114)
[2024-02-28 22:25] LABS: Potassium* 3.9 mmol/L (3.6-5.1); Sodium* 130 mmol/L (135-149)
[2024-02-28 22:27] LABS: Creatinine* 0.6 mg/dL (0.5-1.5); Est. Creatinine Clearance* 89.53; Estimated Glomerular Filt Rate 116 ml/min
[2024-02-28 22:28] LABS: Anion Gap 16 mEq/L (7-15); Blood Urea Nitrogen* 7 mg/dL (5-24); Glucose* 93 mg/dL (60-115)
[2024-02-28 22:30] LABS: Carbon Dioxide* 7 mmol/L (20-32)
[2024-02-28 22:31] LABS: pH VBG 7.162 (7.32-7.43)
[2024-02-28] MEDS: 0.9 % SODIUM CHLORIDE 1000 ml 1,000 ML 200 ML IV (23:30)
[2024-02-29] VITALS (12 sets, daily range): BP systolic 110–141; BP diastolic 67–92; PULSE 91–113; RESP 18–20; TEMP 36.7–37.1; O2SAT 97–99
[2024-02-29] MEDS: ONDANSETRON 2 MG/ML inj 4 MG IVP (06:38)
[2024-02-29] MEDS: HYDROmorphone 0.5 mg/0.5 ml inj IVP ×4 (06:38→18:58)
[2024-02-29 06:44] LABS: HCO3 VBG 12 mmol/L (21-28); PCO2 VBG 31 mmHG (40-50)
--- NOTE | 2024-02-29 06:44 | PC.NURSE ---
23-07: pleasant and cooperative. indep in rm. rating pain 4-6/10, IV Dilaudid given x 1. C/o nausea, zofran given. IVF increased from 125mL/hr to 200ml/hr for 1L, currently NS running at 150mL/hr. Tele - Sinus Tach/NSR. HR 95-110s.
[2024-02-29 06:46] LABS: pH VBG 7.188 (7.32-7.43)
[2024-02-29 06:50] LABS: Hematocrit 34.3 % (33.0-51.0); Hemoglobin* 10.5 gm/dL (12.0-16.0); Mean Corpuscular HGB Conc 31 gm/dL (32-36); Mean Corpuscular Hemoglobin 29 pg (26-34); Mean Corpuscular Volume 93 fL (80-100); Platelet Count* 143 K/uL (140-440); Red Blood Count 3.68 m/uL (4.00-5.20); White Blood Count* 5.44 K/uL (4.50-11.00)
[2024-02-29 06:53] LABS: Slide Review Reflex No
[2024-02-29 07:02] LABS: Albumin* 4.3 g/dL (3.3-5.0); Chloride* 108 mmol/L (96-114); Sodium* 133 mmol/L (135-149)
[2024-02-29 07:03] LABS: Potassium* 3.7 mmol/L (3.6-5.1)
[2024-02-29 07:05] LABS: Alanine Aminotransferase* 57 U/L (4-35); Alkaline Phosphatase* 62 U/L (40-150); Anion Gap 14 mEq/L (7-15); Aspartate Amino Transferase* 69 U/L (12-35); Bilirubin Total* 0.6 mg/dL (0.1-1.5); Blood Urea Nitrogen* 5 mg/dL (5-24); Carbon Dioxide* 11 mmol/L (20-32); Creatinine* 0.5 mg/dL (0.5-1.5); Est. Creatinine Clearance* 107.43; Estimated Glomerular Filt Rate 122 ml/min; Glucose* 88 mg/dL (60-115); Lipase* 1568 U/L (23-300); Total Protein* 6.9 g/dL (6.0-8.3)
[2024-02-29 07:06] LABS: Calcium* 8.2 mg/dL (8.4-10.6)
--- NOTE | 2024-02-29 07:30 | PM.IMPN1 ---
Progress Note: A&P Assessment and plan (1) Pancreatitis: Problem details: -h/o current alcohol use disorder -RUQ pain, n/v x 4 days, unable to keep water down (no solids or electrolytes attempted), last normal BM 02/25 -lipase 2379, direct bili 0.8, AST 92, ALT 101. Pancreas not well visualized on RUQ US -mag 2.8, phos 3.8 -IVF, NPO, pain and nausea management prn, IV PPI (remote h/o gastric ulcer) -follow labs Status: Acute (2) Alcohol use disorder: Problem details: -whiskey, 4-5 shots daily when she can afford it. Occasional glass of wine. Last ETOH intake Wednesday 02/21 -ETOH from ED draw added -denies h/o withdrawals, seizures -[facility] protocol -thiamine, folic acid, MVI -SS for CD eval -counseled patient on quitting alcohol Status: Acute (3) Cholelithiasis: Problem details: -RUQ ultrasound shows Cholelithiasis. There is a large gallstone within the gallbladder measuring 4.1 x 1.1 x 2.7 cm. The gallbladder wall measures 1.5 mm. No pericholecystic fluid. Positive sonographic Desir`s sign according to the esthetic dermatologist worksheet. No evidence of obstruction -afebrile, no leukocytosis, lactate 0.7 -consider further imaging with CT if new or worsening symptoms or no resolve -ED provider discussed with General Surgery, Dr. Pittman. Consulted today. Asked for patient to be NPO. Status: Acute (4) Ketoacidosis: Problem details: - On admission: serum CO2 <5, anion gap 29 -> 22, creatinine 1.2, GFR 59, K+ 4.7, glucose 171, lactate 0.7, urine ketones +4, urine glucose negative -improving -VBG added from ED draw 7.055 ->7.086, pCO2 22 ->18, pO2 35.1, HCO3 6 -suspected etiology starvation, h/o ETOH abuse -NS bolus = 2L in ED, continue boluses on floor, trending labs, monitoring electrolytes with replacement as needed, maintenance fluids Status: Acute (5) Metabolic acidosis: Problem details: -on admission: serum CO2 <5, anion gap 29, creatinine 1.2, GFR 59, glucose 171, lactate 0.7 -improving -acute pancreatitis, vomiting with poor oral intake x 4 days -VBG ordered, UA, repeat BMP following IVF -continue IVF, monitor labs Status: Acute (6) Fatty liver: Problem details: -abnormal liver panel -RUQ US shows mildly enlarged echogenic liver likely related to fatty infiltration or other intrinsic hepatic parenchymal process -counseled patient on quitting alcohol and losing weight, exercise. Status: Acute (7) Hyperglycemia: Problem details: -glucose in ED 171, 2 years ago 145. Urine negative glucose -H/o gestational diabetes with 3rd , unknown family history (adopted). A1c 5.0 Status: Acute (8) History of gastric ulcer: Problem details: on PPI IV Status: Acute Plan As above Time Spent With Patient Total time spent: Today I spent 50 minutes seeing the patient, reviewing Expanse and EPIC notes/diagnostics, discussing the care plan with our care time that includes social work, PT/OT, pharmacy, RT, nursing home and documenting my impressions and plan in the medical record. Subjective Date Seen: 02/29/24 Interval history: Pt seen and examined at bedside. Pain is under control with her pain regimen. Dr Pittman wants her to stay NPO. Exam Narrative: Exam Narrative: Physical exam GENERAL: no acute distress. HEAD AND NECK: Atraumatic, normocephalic CARDIOVASCULAR: RRR. Normal S1, S2. +ve murmer RESPIRATORY: Clear to auscultation B/L. Good air entry B/L. No wheezes or rhonchi. GASTROINTESTINAL: Epigastrium tender to palpation. No rigidity or guarding. NEUROLOGY: Alert, awake, oriented X 3. Normal speech. PSYCH: Normal mood, normal affect. Const: Vital Signs, click to edit/add: Vital Signs - 24 hr 02/28/24 11:40 02/28/24 13:00 02/28/24 13:10 Temperature 97.2 F L Pulse Rate 112 H Pulse Rate [Pulse Oximeter] 122 H 114 H Pulse Rate [Right Pulse Oximeter] Respiratory Rate 24 28 H Blood Pressure Blood Pressure [Le ft Arm] Blood Pressure [Ri ght Arm] Blood Pressure [Ri ght Upper Arm] 120/86 Pulse Oximetry 100 100 100 Oxygen Delivery Me thod Room Air Room Air 02/28/24 13:15 02/28/24 13:15 02/28/24 13:18 Temperature Pulse Rate 111 H 112 H Pulse Rate [Pulse Oximeter] 110 H Pulse Rate [Right Pulse Oximeter] Respiratory Rate 24 24 Blood Pressure 147/87 H Blood Pressure [Le ft Arm] Blood Pressure [Ri ght Arm] Blood Pressure [Ri ght Upper Arm] 147/76 H Pulse Oximetry 100 100 100 Oxygen Delivery Me thod Room Air Room Air 02/28/24 13:31 02/28/24 13:32 02/28/24 13:45 Temperature Pulse Rate 110 H 108 H 110 H Pulse Rate [Pulse Oximeter] Pulse Rate [Right Pulse Oximeter] Respiratory Rate Blood Pressure 158/92 H Blood Pressure [Le ft Arm] Blood Pressure [Ri ght Arm] Blood Pressure [Ri ght Upper Arm] Pulse Oximetry 100 100 100 Oxygen Delivery Me thod 02/28/24 14:00 02/28/24 14:01 02/28/24 14:15 Temperature Pulse Rate 116 H 114 H 114 H Pulse Rate [Pulse Oximeter] Pulse Rate [Right Pulse Oximeter] Respiratory Rate Blood Pressure 141/99 H Blood Pressure [Le ft Arm] Blood Pressure [Ri ght Arm] Blood Pressure [Ri ght Upper Arm] Pulse Oximetry 97 100 99 Oxygen Delivery Me thod 02/28/24 14:30 02/28/24 14:33 02/28/24 14:45 Temperature Pulse Rate 108 H 110 H 112 H Pulse Rate [Pulse Oximeter] Pulse Rate [Right Pulse Oximeter] Respiratory Rate Blood Pressure Blood Pressure [Le ft Arm] Blood Pressure [Ri ght Arm] Blood Pressure [Ri ght Upper Arm] Pulse Oximetry 100 100 100 Oxygen Delivery Me thod 02/28/24 15:00 02/28/24 15:03 02/28/24 15:25 Temperature 97.5 F L Pulse Rate 110 H 111 H Pulse Rate [Pulse Oximeter] Pulse Rate [Right Pulse Oximeter] 118 H Respiratory Rate 20 Blood Pressure Blood Pressure [Le ft Arm] Blood Pressure [Ri ght Arm] 147/87 H Blood Pressure [Ri ght Upper Arm] Pulse Oximetry 100 99 100 Oxygen Delivery Me thod Room Air 02/28/24 15:25 02/28/24 16:09 02/28/24 17:05 Temperature Pulse Rate Pulse Rate [Pulse Oximeter] Pulse Rate [Right Pulse Oximeter] 108 H 107 H Respiratory Rate 20 18 Blood Pressure Blood Pressure [Le ft Arm] Blood Pressure [Ri ght Arm] 133/82 Blood Pressure [Ri ght Upper Arm] Pulse Oximetry 100 98 Oxygen Delivery Me thod Room Air Room Air 02/28/24 18:00 02/28/24 19:00 02/28/24 19:00 Temperature 98.8 F Pulse Rate 109 H Pulse Rate [Pulse Oximeter] Pulse Rate [Right Pulse Oximeter] 104 H 103 H Respiratory Rate 18 Blood Pressure Blood Pressure [Le ft Arm] 134/88 148/86 H Blood Pressure [Ri ght Arm] Blood Pressure [Ri ght Upper Arm] Pulse Oximetry 99 99 Oxygen Delivery Me thod Room Air Room Air 02/28/24 19:00 02/28/24 20:00 02/28/24 22:00 Temperature 98.1 F 98.5 F Pulse Rate Pulse Rate [Pulse Oximeter] Pulse Rate [Right Pulse Oximeter] 111 H 111 H 111 H Respiratory Rate 20 20 20 Blood Pressure Blood Pressure [Le ft Arm] 120/74 137/79 Blood Pressure [Ri ght Arm] Blood Pressure [Ri ght Upper Arm] Pulse Oximetry 99 98 Oxygen Delivery Pa thod Room Air Room Air 02/28/24 23:00 02/28/24 23:00 02/28/24 23:01 Temperature 98.5 F Pulse Rate 104 H Pulse Rate [Pulse Oximeter] Pulse Rate [Right Pulse Oximeter] 111 H Respiratory Rate 20 20 Blood Pressure Blood Pressure [Le ft Arm] 137/79 Blood Pressure [Ri ght Arm] 133/82 Blood Pressure [Ri ght Upper Arm] Pulse Oximetry 98 Oxygen Delivery Me thod Room Air 02/29/24 00:00 02/29/24 02:00 02/29/24 02:57 Temperature 98.4 F Pulse Rate 100 Pulse Rate [Pulse Oximeter] Pulse Rate [Right Pulse Oximeter] 113 H 106 H Respiratory Rate 20 20 Blood Pressure Blood Pressure [Le ft Arm] 141/82 H 124/72 Blood Pressure [Ri ght Arm] Blood Pressure [Ri ght Upper Arm] Pulse Oximetry 98 97 Oxygen Delivery Me thod Room Air Room Air 02/29/24 03:00 02/29/24 04:00 02/29/24 06:00 Temperature 98.6 F Pulse Rate Pulse Rate [Pulse Oximeter] Pulse Rate [Right Pulse Oximeter] 99 95 Respiratory Rate 20 20 Blood Pressure Blood Pressure [Le ft Arm] 119/73 110/79 Blood Pressure [Ri ght Arm] Blood Pressure [Ri ght Upper Arm] Pulse Oximetry 98 97 Oxygen Delivery Me thod Room Air Room Air Room Air 02/29/24 07:00 02/29/24 07:00 02/29/24 07:00 Temperature 98.8 F Pulse Rate 109 H Pulse Rate [Pulse Oximeter] Pulse Rate [Right Pulse Oximeter] 107 H 107 H Respiratory Rate 18 18 Blood Pressure Blood Pressure [Le ft Arm] Blood Pressure [Ri ght Arm] Blood Pressure [Ri ght Upper Arm] Pulse Oximetry 98 Oxygen Delivery Me thod Room Air Labs Labs: Laboratory Results - last 24 hr 02/28/24 02/28/24 02/28/24 12:25 14:05 15:05 WBC 9.23 RBC 4.80 Hgb 13.7 Hct 45.5 MCV 95 MCH 29 MCHC 30 L RDW Coeff of Ella 16.2 H Plt Count 245 Neut % (Auto) 79.2 H Lymph % (Auto) 9.0 L [place] % (Auto) 7.6 Eos % (Auto) 0.1 Baso % (Auto) 0.4 Neut # (Auto) 7.30 H Lymph # (Auto) 0.80 L [place] # (Auto) 0.70 Eos # (Auto) 0.01 Baso # (Auto) 0.04 Abs Immat Gran (auto) 0.34 H Imm/Tot Granulo (auto) 3.7 Diff Slide Review Acceptable Review VBG pH 7.055 L* VBG pCO2 22 L VBG pO2 35.1 VBG HCO3 6 L Sodium 133 L Potassium 4.7 Chloride 99 Carbon Dioxide < 5 L* Anion Gap 29 H BUN 10 Creatinine 1.2 Estimated Creat Clear 44.76 Estimated GFR 59 Glucose 171 H Hemoglobin A1c Lactate 0.7 Calcium 10.1 Phosphorus 3.8 Magnesium 2.8 H Total Bilirubin 1.0 Direct Bilirubin 0.8 H AST 92 H ALT 101 H Alkaline Phosphatase 102 Total Protein 10.6 H Albumin 6.2 H Lipase 2379 H Urine Color Urine Appearance Urine pH Ur Specific [place] Urine Protein Urine Glucose (UA) Urine Ketones Urine Blood Urine Nitrite Urine Bilirubin Urine Urobilinogen Ur Leukocyte Esterase Urine RBC Urine WBC Ur Squamous Epith Cells Urine Bacteria Urine Opiates Screen POSITIVE A Ur Oxycodone Screen Negative Urine Methadone Screen Negative Ur Barbiturates Screen Negative U Tricyclic Antidepress POSITIVE A Ur Phencyclidine Scrn Negative Ur Amphetamines Screen Negative U Methamphetamines Scrn Negative U Benzodiazepines Scrn Negative Urine Cocaine Screen Negative U Marijuana (THC) Screen POSITIVE A Ur Drug Screen Comment See Note Ethyl Alcohol < 0.01 L Lab Acknowledgement Test Added 02/28/24 02/28/24 02/28/24 15:27 15:40 16:04 WBC RBC Hgb Hct MCV MCH MCHC RDW Coeff of Ella Plt Count Neut % (Auto) Lymph % (Auto) [place] % (Auto) Eos % (Auto) Baso % (Auto) Neut # (Auto) Lymph # (Auto) [place] # (Auto) Eos # (Auto) Baso # (Auto) Abs Immat Gran (auto) Imm/Tot Granulo (auto) Diff Slide Review VBG pH 7.086 L* VBG pCO2 18 L* VBG pO2 80.2 H VBG HCO3 5 L Sodium 130 L Potassium 4.3 Chloride 103 Carbon Dioxide < 5 L* Anion Gap 22 H BUN 8 Creatinine 0.7 Estimated Creat Clear 76.74 Estimated GFR 112 Glucose 116 H Hemoglobin A1c 5.0 Lactate Calcium 8.5 Phosphorus Magnesium Total Bilirubin Direct Bilirubin AST ALT Alkaline Phosphatase Total Protein Albumin Lipase Urine Color Urine Appearance Urine pH Ur Specific [place] Urine Protein Urine Glucose (UA) Urine Ketones Urine Blood Urine Nitrite Urine Bilirubin Urine Urobilinogen Ur Leukocyte Esterase Urine RBC Urine WBC Ur Squamous Epith Cells Urine Bacteria Urine Opiates Screen Ur Oxycodone Screen Urine Methadone Screen Ur Barbiturates Screen U Tricyclic Antidepress Ur Phencyclidine Scrn Ur Amphetamines Screen U Methamphetamines Scrn U Benzodiazepines Scrn Urine Cocaine Screen U Marijuana (THC) Screen Ur Drug Screen Comment Ethyl Alcohol Lab Acknowledgement Test Added Test Added 02/28/24 02/28/24 02/28/24 18:25 21:55 Unknown WBC RBC Hgb Hct MCV MCH MCHC RDW Coeff of Ella Plt Count Neut % (Auto) Lymph % (Auto) [place] % (Auto) Eos % (Auto) Baso % (Auto) Neut # (Auto) Lymph # (Auto) [place] # (Auto) Eos # (Auto) Baso # (Auto) Abs Immat Gran (auto) Imm/Tot Granulo (auto) Diff Slide Review VBG pH 7.072 L* 7.162 L* VBG pCO2 26 L 21 L VBG pO2 47.5 H 91.9 H VBG HCO3 8 L 8 L Sodium 130 L 130 L Potassium 3.6 3.9 Chloride 104 107 Carbon Dioxide 6 L* 7 L* Anion Gap 20 H 16 H BUN 8 7 Creatinine 0.7 0.6 Estimated Creat Clear 76.74 89.53 Estimated GFR 112 116 Glucose 94 93 Hemoglobin A1c Lactate Calcium 7.9 L 8.0 L Phosphorus Magnesium Total Bilirubin Direct Bilirubin AST ALT Alkaline Phosphatase Total Protein Albumin Lipase Urine Color Yellow Urine Appearance Clear Urine pH 5.5 Ur Specific [place] >= 1.030 Urine Protein 3+ A Urine Glucose (UA) Negative Urine Ketones 4+ A Urine Blood 2+ A Urine Nitrite Negative Urine Bilirubin 3+ A Urine Urobilinogen 0.2 Ur Leukocyte Esterase Negative Urine RBC 5-10 A Urine WBC 0-2 Ur Squamous Epith Cells None Urine Bacteria Few A Urine Opiates Screen Ur Oxycodone Screen Urine Methadone Screen Ur Barbiturates Screen U Tricyclic Antidepress Ur Phencyclidine Scrn Ur Amphetamines Screen U Methamphetamines Scrn U Benzodiazepines Scrn Urine Cocaine Screen U Marijuana (THC) Screen Ur Drug Screen Comment Ethyl Alcohol Lab Acknowledgement 02/29/24 06:37 WBC 5.44 RBC 3.68 L Hgb 10.5 L Hct 34.3 MCV 93 MCH 29 MCHC 31 L RDW Coeff of Ella Plt Count 143 Neut % (Auto) Lymph % (Auto) [place] % (Auto) Eos % (Auto) Baso % (Auto) Neut # (Auto) Lymph # (Auto) [place] # (Auto) Eos # (Auto) Baso # (Auto) Abs Immat Gran (auto) Imm/Tot Granulo (auto) Diff Slide Review VBG pH 7.188 L* VBG pCO2 31 L VBG pO2 36.0 VBG HCO3 12 L Sodium 133 L Potassium 3.7 Chloride 108 Carbon Dioxide 11 L Anion Gap 14 BUN 5 Creatinine 0.5 Estimated Creat Clear 107.43 Estimated GFR 122 Glucose 88 Hemoglobin A1c Lactate Calcium 8.2 L Phosphorus Magnesium Total Bilirubin 0.6 Direct Bilirubin AST 69 H ALT 57 H Alkaline Phosphatase 62 Total Protein 6.9 Albumin 4.3 Lipase 1568 H Urine Color Urine Appearance Urine pH Ur Specific [place] Urine Protein Urine Glucose (UA) Urine Ketones Urine Blood Urine Nitrite Urine Bilirubin Urine Urobilinogen Ur Leukocyte Esterase Urine RBC Urine WBC Ur Squamous Epith Cells Urine Bacteria Urine Opiates Screen Ur Oxycodone Screen Urine Methadone Screen Ur Barbiturates Screen U Tricyclic Antidepress Ur Phencyclidine Scrn Ur Amphetamines Screen U Methamphetamines Scrn U Benzodiazepines Scrn Urine Cocaine Screen U Marijuana (THC) Screen Ur Drug Screen Comment Ethyl Alcohol Lab Acknowledgement
[2024-02-29] MEDS: FOLIC ACID 1 MG TABLET PO (08:14)
[2024-02-29] MEDS: MULTIVITAMIN/MINERALS 1 TABLET 1 TAB PO (08:14)
[2024-02-29] MEDS: ACETAMINOPHEN 325 MG TABLET 650 MG PO ×2 (08:14→14:37)
[2024-02-29] MEDS: PANTOPRAZOLE SODIUM 40 MG INJ IVP (08:15)
[2024-02-29] MEDS: 0.9 % SODIUM CHLORIDE 1000 ml 1,000 ML 150 ML IV ×3 (08:32→23:14)
[2024-02-29 12:09] LABS: Basophils Absolute Auto 0.02 K/uL (0.00-0.30); Basophils Percent Auto 0.4 % (0.0-3.0); Eosinophils Absolute Auto 0.14 K/uL (0.00-0.50); Eosinophils Percent Auto 2.7 % (0.0-7.0); Hematocrit 32.8 % (33.0-51.0); Hemoglobin* 10.2 gm/dL (12.0-16.0); Immature Granulocytes Abs Auto 0.05 K/uL (0.00-0.30); Lymphocytes Absolute Auto 1.16 K/uL (0.90-2.90); Lymphocytes Percent Auto 22.5 % (20-44); Mean Corpuscular HGB Conc 31 gm/dL (32-36); Mean Corpuscular Hemoglobin 29 pg (26-34); Mean Corpuscular Volume 92 fL (80-100); Monocytes Percent Auto 6.6 % (0.0-11.0); Neutrophils Absolute Auto 3.45 K/uL (1.7-7.0); Neutrophils Percent Auto 66.8 % (42.0-72.0); Platelet Count* 139 K/uL (140-440); RDW Coefficient of Variation % 15.8 % (11.5-15.5); Red Blood Count 3.55 m/uL (4.00-5.20); White Blood Count* 5.16 K/uL (4.50-11.00)
[2024-02-29 12:12] LABS: Slide Review Reflex No
[2024-02-29 12:24] LABS: Albumin* 4.3 g/dL (3.3-5.0); Chloride* 108 mmol/L (96-114); Potassium* 3.3 mmol/L (3.6-5.1); Sodium* 133 mmol/L (135-149)
[2024-02-29 12:27] LABS: Alanine Aminotransferase* 61 U/L (4-35); Alkaline Phosphatase* 65 U/L (40-150); Anion Gap 15 mEq/L (7-15); Aspartate Amino Transferase* 81 U/L (12-35); Bilirubin Total* 0.5 mg/dL (0.1-1.5); Blood Urea Nitrogen* 4 mg/dL (5-24); Carbon Dioxide* 10 mmol/L (20-32); Creatinine* 0.5 mg/dL (0.5-1.5); Est. Creatinine Clearance* 107.43; Estimated Glomerular Filt Rate 122 ml/min; Glucose* 88 mg/dL (60-115)
[2024-02-29 12:28] LABS: Calcium* 8.2 mg/dL (8.4-10.6)
--- NOTE | 2024-02-29 13:55 | PM.GSCN ---
History of Present Illness Consult details Date Seen: 02/29/24 Consult date: 02/29/24 Narrative: Patient presented to the emergency department for intractable vomiting and severe abdominal pain. The pain started on Friday. It is in the middle of her abdomen, radiating to her right side and through to her back. She has never had pain like this before. The pain continued to worsen throughout the week and was associated with nausea and vomiting. The last 4 days she has been unable to keep down any liquids or food. Her abdominal surgical history is positive for . She does drink alcohol daily, reports ?a few shots a night?. She has not been drinking since the pain started. Review of Systems Status of ROS: Reports: 6 or more systems reviewed and unremarkable except as noted in History and below [facility] Medical History (Updated 02/29/24 @ 12:23 by Daria Christianson MD) Hyperglycemia ?R73.9 - Hyperglycemia, unspecified (ICD-10) Obesity ?E66.9 - Obesity, unspecified (ICD-10) Migraines ?G43.909 - Migraine, unspecified, not intractable, without status migrainosus (ICD-10) Vitamin B12 deficiency ?E53.8 - Deficiency of other specified B group vitamins (ICD-10) History of gastric ulcer ?Z87.11 - Personal history of peptic ulcer disease (ICD-10) Alcohol use disorder ?F10.90 - Alcohol use, unspecified, uncomplicated (ICD-10) Social History What is your current living situation?: I presently have a place to live Problems where you live: no known problems Problems where you live details: NA In the past 12 months, utilities in danger of being shut off: no In the past 12 mos, have been you worried that your food would run out before you had money to buy more?: never true In the past 12 mos, the food you bought just didn't last and you didn't have money to buy more?: never true Highest level of school completed/degree received: Associate degree: occupational, technical, vocational program Smoking Status: Light tobacco smoker What tobacco products do you use: cigarettes Smoking packs per day: 0.5 Smoking cigarettes per day: 10.0 Years smoked: 25 Smoking pack-years: 12.50 Second hand tobacco smoke exposure: No How often do you have a drink containing alcohol: 4 or more times a week Alcohol type: hard liquor How many standard drinks containing alcohol do you have on a typical day: 5 or 6 How often do you have six or more drinks on one occasion: Weekly AUDIT-C Alcohol total score: 9 Non-prescribed substance use: marijuana (any form) Caffeine: No How often does anyone, including family, friends and others, physically hurt you: never How often does anyone, including family, friends and others, insult or talk down to you: never How often does anyone, including family, friends and others, threaten you with harm: never How often does anyone, including family, friends and others, scream or curse at you: never service: No Meds Home Medications and Allergies Home Medications ?Medication ?Instructions ?Recorded ?Confirmed ?Type No Known Home Medications 03/12/23 02/28/24 History Allergies Allergy/AdvReac Type Severity Reaction Status Date / Time No Known Drug Allergies Allergy Verified 02/28/24 11:40 Exam Narrative: Exam Narrative: General: Alert, oriented in no acute distress Respiratory: Maintained on room air, equal breath rise CV: Well perfused, mild tachycardia Abdomen: Soft, epigastric tenderness to palpation with some guarding, no rebound. Right upper quadrant tenderness with positive Desir sign. Const: Vital Signs, click to edit/add: Vital Signs - 24 hr 02/28/24 14:00 02/28/24 14:01 02/28/24 14:15 Temperature Pulse Rate 116 H 114 H 114 H Pulse Rate [Right Pulse Oximeter] Respiratory Rate Blood Pressure 141/99 H Blood Pressure [Le ft Arm] Blood Pressure [Ri ght Arm] Pulse Oximetry 97 100 99 Oxygen Delivery Me thod 02/28/24 14:30 02/28/24 14:33 02/28/24 14:45 Temperature Pulse Rate 108 H 110 H 112 H Pulse Rate [Right Pulse Oximeter] Respiratory Rate Blood Pressure Blood Pressure [Le ft Arm] Blood Pressure [Ri ght Arm] Pulse Oximetry 100 100 100 Oxygen Delivery Me thod 02/28/24 15:00 02/28/24 15:03 02/28/24 15:25 Temperature 97.5 F L Pulse Rate 110 H 111 H Pulse Rate [Right Pulse Oximeter] 118 H Respiratory Rate 20 Blood Pressure Blood Pressure [Le ft Arm] Blood Pressure [Ri ght Arm] 147/87 H Pulse Oximetry 100 99 100 Oxygen Delivery Me thod Room Air 02/28/24 15:25 02/28/24 16:09 02/28/24 17:05 Temperature Pulse Rate Pulse Rate [Right Pulse Oximeter] 108 H 107 H Respiratory Rate 20 18 Blood Pressure Blood Pressure [Le ft Arm] Blood Pressure [Ri ght Arm] 133/82 Pulse Oximetry 100 98 Oxygen Delivery Me thod Room Air Room Air 02/28/24 18:00 02/28/24 19:00 02/28/24 19:00 Temperature 98.8 F Pulse Rate 109 H Pulse Rate [Right Pulse Oximeter] 104 H 103 H Respiratory Rate 18 Blood Pressure Blood Pressure [Le ft Arm] 134/88 148/86 H Blood Pressure [Ri ght Arm] Pulse Oximetry 99 99 Oxygen Delivery Me thod Room Air Room Air 02/28/24 19:00 02/28/24 20:00 02/28/24 22:00 Temperature 98.1 F 98.5 F Pulse Rate Pulse Rate [Right Pulse Oximeter] 111 H 111 H 111 H Respiratory Rate 20 20 20 Blood Pressure Blood Pressure [Le ft Arm] 120/74 137/79 Blood Pressure [Ri ght Arm] Pulse Oximetry 99 98 Oxygen Delivery Me thod Room Air Room Air 02/28/24 23:00 02/28/24 23:00 02/28/24 23:01 Temperature 98.5 F Pulse Rate 104 H Pulse Rate [Right Pulse Oximeter] 111 H Respiratory Rate 20 20 Blood Pressure Blood Pressure [Le ft Arm] 137/79 Blood Pressure [Ri ght Arm] 133/82 Pulse Oximetry 98 Oxygen Delivery Me thod Room Air 02/29/24 00:00 02/29/24 02:00 02/29/24 02:57 Temperature 98.4 F Pulse Rate 100 Pulse Rate [Right Pulse Oximeter] 113 H 106 H Respiratory Rate 20 20 Blood Pressure Blood Pressure [Le ft Arm] 141/82 H 124/72 Blood Pressure [Ri ght Arm] Pulse Oximetry 98 97 Oxygen Delivery Me thod Room Air Room Air 02/29/24 03:00 02/29/24 04:00 02/29/24 06:00 Temperature 98.6 F Pulse Rate Pulse Rate [Right Pulse Oximeter] 99 95 Respiratory Rate 20 20 Blood Pressure Blood Pressure [Le ft Arm] 119/73 110/79 Blood Pressure [Ri ght Arm] Pulse Oximetry 98 97 Oxygen Delivery Me thod Room Air Room Air Room Air 02/29/24 07:00 02/29/24 07:00 02/29/24 07:00 Temperature 98.8 F Pulse Rate 109 H Pulse Rate [Right Pulse Oximeter] 107 H 107 H Respiratory Rate 18 18 Blood Pressure Blood Pressure [Le ft Arm] Blood Pressure [Ri ght Arm] Pulse Oximetry 98 Oxygen Delivery Me thod Room Air 02/29/24 08:00 02/29/24 11:00 Temperature 98.8 F Pulse Rate Pulse Rate [Right Pulse Oximeter] 102 H 103 H Respiratory Rate 18 18 Blood Pressure Blood Pressure [Le ft Arm] 118/67 120/69 Blood Pressure [Ri ght Arm] Pulse Oximetry 98 99 Oxygen Delivery Me thod Room Air Room Air Results Labs Labs: Abnormal lab results 02/28/24 02/28/24 02/28/24 Range/Units 12:25 14:05 15:05 RBC (4.00-5.20) m/uL Hgb (12.0-16.0) gm/dL Hct (33.0-51.0) % MCHC (32-36) gm/dL RDW Coeff of Ella (11.5-15.5) % Plt Count (140-440) K/uL VBG pH 7.055 L* (7.32-7.43) VBG pCO2 22 L (40-50) mmHG VBG pO2 (25-47) mmHG VBG HCO3 6 L (21-28) mmol/L Sodium (135-149) mmol/L Potassium (3.6-5.1) mmol/L Carbon Dioxide (20-32) mmol/L Anion Gap (7-15) mEq/L BUN (5-24) mg/dL Glucose (60-115) mg/dL Calcium (8.4-10.6) mg/dL Magnesium 2.8 H (1.5-2.6) mg/dL AST (12-35) U/L ALT (4-35) U/L Lipase (23-300) U/L Urine Protein (Negative) Urine Ketones (Negative) Urine Blood (Negative) Urine Bilirubin (Negative) Urine RBC (0-2) Urine Bacteria (None) Urine Opiates Screen POSITIVE A (Negative) U Tricyclic Antidepress POSITIVE A (Negative) U Marijuana (THC) Screen POSITIVE A (Negative) Ethyl Alcohol < 0.01 L (0.01-0.03) % 02/28/24 02/28/24 02/28/24 Range/Units 16:04 18:25 21:55 RBC (4.00-5.20) m/uL Hgb (12.0-16.0) gm/dL Hct (33.0-51.0) % MCHC (32-36) gm/dL RDW Coeff of Ella (11.5-15.5) % Plt Count (140-440) K/uL VBG pH 7.086 L* 7.072 L* 7.162 L* (7.32-7.43) VBG pCO2 18 L* 26 L 21 L (40-50) mmHG VBG pO2 80.2 H 47.5 H 91.9 H (25-47) mmHG VBG HCO3 5 L 8 L 8 L (21-28) mmol/L Sodium 130 L 130 L 130 L (135-149) mmol/L Potassium (3.6-5.1) mmol/L Carbon Dioxide < 5 L* 6 L* 7 L* (20-32) mmol/L Anion Gap 22 H 20 H 16 H (7-15) mEq/L BUN (5-24) mg/dL Glucose 116 H (60-115) mg/dL Calcium 7.9 L 8.0 L (8.4-10.6) mg/dL Magnesium (1.5-2.6) mg/dL AST (12-35) U/L ALT (4-35) U/L Lipase (23-300) U/L Urine Protein (Negative) Urine Ketones (Negative) Urine Blood (Negative) Urine Bilirubin (Negative) Urine RBC (0-2) Urine Bacteria (None) Urine Opiates Screen (Negative) U Tricyclic Antidepress (Negative) U Marijuana (THC) Screen (Negative) Ethyl Alcohol (0.01-0.03) % 02/28/24 02/29/24 02/29/24 Range/Units Unknown 06:37 12:02 RBC 3.68 L 3.55 L (4.00-5.20) m/uL Hgb 10.5 L 10.2 L (12.0-16.0) gm/dL Hct 32.8 L (33.0-51.0) % MCHC 31 L 31 L (32-36) gm/dL RDW Coeff of Ella 15.8 H (11.5-15.5) % Plt Count 139 L (140-440) K/uL VBG pH 7.188 L* (7.32-7.43) VBG pCO2 31 L (40-50) mmHG VBG pO2 (25-47) mmHG VBG HCO3 12 L (21-28) mmol/L Sodium 133 L 133 L (135-149) mmol/L Potassium 3.3 L (3.6-5.1) mmol/L Carbon Dioxide 11 L 10 L (20-32) mmol/L Anion Gap (7-15) mEq/L BUN 4 L (5-24) mg/dL Glucose (60-115) mg/dL Calcium 8.2 L 8.2 L (8.4-10.6) mg/dL Magnesium (1.5-2.6) mg/dL AST 69 H 81 H (12-35) U/L ALT 57 H 61 H (4-35) U/L Lipase 1568 H (23-300) U/L Urine Protein 3+ A (Negative) Urine Ketones 4+ A (Negative) Urine Blood 2+ A (Negative) Urine Bilirubin 3+ A (Negative) Urine RBC 5-10 A (0-2) Urine Bacteria Few A (None) Urine Opiates Screen (Negative) U Tricyclic Antidepress (Negative) U Marijuana (THC) Screen (Negative) Ethyl Alcohol (0.01-0.03) % Diabetes panel 02/28/24 02/28/24 02/28/24 Range/Units 16:04 18:25 21:55 Sodium 130 L 130 L 130 L (135-149) mmol/L Potassium 4.3 3.6 3.9 (3.6-5.1) mmol/L Chloride 103 104 107 (96-114) mmol/L Carbon Dioxide < 5 L* 6 L* 7 L* (20-32) mmol/L BUN 8 8 7 (5-24) mg/dL Creatinine 0.7 0.7 0.6 (0.5-1.5) mg/dL Glucose 116 H 94 93 (60-115) mg/dL Hemoglobin A1c 5.0 (0-5.6) % Calcium 8.5 7.9 L 8.0 L (8.4-10.6) mg/dL AST (12-35) U/L ALT (4-35) U/L Alkaline Phosphatase (40-150) U/L Total Protein (6.0-8.3) g/dL Albumin (3.3-5.0) g/dL 02/29/24 02/29/24 Range/Units 06:37 12:02 Sodium 133 L 133 L (135-149) mmol/L Potassium 3.7 3.3 L (3.6-5.1) mmol/L Chloride 108 108 (96-114) mmol/L Carbon Dioxide 11 L 10 L (20-32) mmol/L BUN 5 4 L (5-24) mg/dL Creatinine 0.5 0.5 (0.5-1.5) mg/dL Glucose 88 88 (60-115) mg/dL Hemoglobin A1c (0-5.6) % Calcium 8.2 L 8.2 L (8.4-10.6) mg/dL AST 69 H 81 H (12-35) U/L ALT 57 H 61 H (4-35) U/L Alkaline Phosphatase 62 65 (40-150) U/L Total Protein 6.9 7.0 (6.0-8.3) g/dL Albumin 4.3 4.3 (3.3-5.0) g/dL Calcium panel 02/28/24 02/28/24 02/28/24 Range/Units 12:25 16:04 18:25 Calcium 8.5 7.9 L (8.4-10.6) mg/dL Phosphorus 3.8 (2.5-4.5) mg/dL Albumin (3.3-5.0) g/dL 02/28/24 02/29/24 02/29/24 Range/Units 21:55 06:37 12:02 Calcium 8.0 L 8.2 L 8.2 L (8.4-10.6) mg/dL Phosphorus (2.5-4.5) mg/dL Albumin 4.3 4.3 (3.3-5.0) g/dL Pituitary panel 02/28/24 02/28/24 02/28/24 Range/Units 16:04 18:25 21:55 Sodium 130 L 130 L 130 L (135-149) mmol/L Potassium 4.3 3.6 3.9 (3.6-5.1) mmol/L Chloride 103 104 107 (96-114) mmol/L Carbon Dioxide < 5 L* 6 L* 7 L* (20-32) mmol/L BUN 8 8 7 (5-24) mg/dL Creatinine 0.7 0.7 0.6 (0.5-1.5) mg/dL Glucose 116 H 94 93 (60-115) mg/dL Calcium 8.5 7.9 L 8.0 L (8.4-10.6) mg/dL 02/29/24 02/29/24 Range/Units 06:37 12:02 Sodium 133 L 133 L (135-149) mmol/L Potassium 3.7 3.3 L (3.6-5.1) mmol/L Chloride 108 108 (96-114) mmol/L Carbon Dioxide 11 L 10 L (20-32) mmol/L BUN 5 4 L (5-24) mg/dL Creatinine 0.5 0.5 (0.5-1.5) mg/dL Glucose 88 88 (60-115) mg/dL Calcium 8.2 L 8.2 L (8.4-10.6) mg/dL Adrenal panel 02/28/24 02/28/24 02/28/24 Range/Units 16:04 18:25 21:55 Sodium 130 L 130 L 130 L (135-149) mmol/L Potassium 4.3 3.6 3.9 (3.6-5.1) mmol/L Chloride 103 104 107 (96-114) mmol/L Carbon Dioxide < 5 L* 6 L* 7 L* (20-32) mmol/L BUN 8 8 7 (5-24) mg/dL Creatinine 0.7 0.7 0.6 (0.5-1.5) mg/dL Glucose 116 H 94 93 (60-115) mg/dL Calcium 8.5 7.9 L 8.0 L (8.4-10.6) mg/dL Total Bilirubin (0.1-1.5) mg/dL AST (12-35) U/L ALT (4-35) U/L Alkaline Phosphatase (40-150) U/L Total Protein (6.0-8.3) g/dL Albumin (3.3-5.0) g/dL 02/29/24 02/29/24 Range/Units 06:37 12:02 Sodium 133 L 133 L (135-149) mmol/L Potassium 3.7 3.3 L (3.6-5.1) mmol/L Chloride 108 108 (96-114) mmol/L Carbon Dioxide 11 L 10 L (20-32) mmol/L BUN 5 4 L (5-24) mg/dL Creatinine 0.5 0.5 (0.5-1.5) mg/dL Glucose 88 88 (60-115) mg/dL Calcium 8.2 L 8.2 L (8.4-10.6) mg/dL Total Bilirubin 0.6 0.5 (0.1-1.5) mg/dL AST 69 H 81 H (12-35) U/L ALT 57 H 61 H (4-35) U/L Alkaline Phosphatase 62 65 (40-150) U/L Total Protein 6.9 7.0 (6.0-8.3) g/dL Albumin 4.3 4.3 (3.3-5.0) g/dL All other labs normal. Imaging Abdominal ultrasound report/results: report reviewed and image reviewed Progress Note:A&P Assessment and plan (1) Pancreatitis: Status: Acute Assessment and Plan: Patient admitted for pancreatitis. In reviewing labs she has a severe metabolic acidosis, which is surprising in the setting of intractable vomiting where a metabolic alkalosis would be more common. This is most likely associated with her significant alcohol use. The etiology of her pancreatitis is most likely associated with alcohol use as well. On imaging she does have evidence of a large stone within the gallbladder (4.1 cm at largest), but no gallbladder wall thickening or pericholecystic fluid. On exam she is tender in the epigastric region, as well as right upper quadrant with positive Desir sign. It is possible that the large stone could be obscuring small stones or sludge within the gallbladder, which could cause a choledocholithiasis or pancreatitis. Her LFTs demonstrate a mild elevation in ALT and AST, normal total bilirubin. Given the size of the stone, as well as now her history of pancreatitis I am recommending that she have her gallbladder removed. This could potentially be done during this hospital stay versus outpatient.
[2024-02-29] MEDS: POTASSIUM CHLORIDE 10 MEQ CAPSULE ER 40 MEQ PO (13:56)
[2024-02-29] MEDS: PROCHLORPERAZINE 5 MG/ML VIAL IV (15:21)
[2024-02-29] MEDS: THIAMINE 250 MG in 0.9 % SODIUM CHLORIDE 100 ml 100 ML 102.5 MG IVPB (16:27)
--- NOTE | 2024-02-29 19:03 | PC.NURSE ---
Nursing Care Hours: [id number] Pt this shift alert and oriented, VSS, independent in room. Moved from CCU to regular m/s floor. Pt pain rated 5-8/10, treated per eMAR. Nausea controlled until trial of clears. About 200 PO water intake and then pt c/o increase pain and nausea. Advised pt to go slow. Ordered about 420ml fluid for dinner and tolerated intake well. BS hypoactive and denies passing gas. IV patent but tender, a little red around the site at end of shift, reported to oncoming nurse. Sweet alcohol/ketone smell still present on breath. Pt picking at skin causing bleeding. Encouraged pt to walk the halls if she feels up to it and also offered a shower but pt declined both. IS given for low activity and decreased LL sounds without cough.
[2024-02-29] MEDS: OXYCODONE 5 MG TABLET PO (20:22)
[2024-03-01] VITALS (9 sets, daily range): BP systolic 121–146; BP diastolic 79–92; PULSE 94–106; RESP 16–18; TEMP 36.3–37.2; O2SAT 96–99
[2024-03-01] MEDS: 0.9 % SODIUM CHLORIDE 1000 ml 1,000 ML 150 ML IV ×3 (05:24→19:44)
--- NOTE | 2024-03-01 06:36 | PC.NURSE ---
End of shift [id number]: Pt has been A&O, afebrile and VSS overnight. She is up ad abena in the room. PRN oxycodone given once @ 2019 for 610 RLQ abdominal cramping. Pt was made NPO at midnight for potential surgery today. CIWA?s overnight 1 (anxiety) > 0 > 0. TELE reads SR to ST rate in the 90s- low 100s. PIV in right AC infusing NaCl @ 150 mL/hr. C/o IV site being tender & red but declined having a new one placed, pt reported ?maybe tomorrow?. Bowel sounds were active throughout & abdomen soft to the touch. Pt denied nausea, CP or dizziness. No BM overnight. ?
[2024-03-01 06:38] LABS: Hematocrit 32.1 % (33.0-51.0); Mean Corpuscular HGB Conc 31 gm/dL (32-36); Mean Corpuscular Hemoglobin 28 pg (26-34); Mean Corpuscular Volume 90 fL (80-100); Platelet Count* 131 K/uL (140-440); Red Blood Count 3.55 m/uL (4.00-5.20); White Blood Count* 4.47 K/uL (4.50-11.00)
[2024-03-01 06:44] LABS: Slide Review Reflex No
[2024-03-01 06:52] LABS: Albumin* 4.1 g/dL (3.3-5.0)
[2024-03-01 06:53] LABS: Chloride* 107 mmol/L (96-114); Sodium* 134 mmol/L (135-149)
[2024-03-01 06:55] LABS: Alkaline Phosphatase* 65 U/L (40-150); Anion Gap 13 mEq/L (7-15); Aspartate Amino Transferase* 176 U/L (12-35); Bilirubin Total* 0.5 mg/dL (0.1-1.5); Carbon Dioxide* 14 mmol/L (20-32); Creatinine* 0.4 mg/dL (0.5-1.5); Est. Creatinine Clearance* 134.29; Estimated Glomerular Filt Rate 128 ml/min; Total Protein* 6.5 g/dL (6.0-8.3)
[2024-03-01 06:56] LABS: Alanine Aminotransferase* 91 U/L (4-35); Calcium* 8.5 mg/dL (8.4-10.6); Glucose* 81 mg/dL (60-115); Lipase* 1217 U/L (23-300)
[2024-03-01 07:03] LABS: Blood Urea Nitrogen* < 2 mg/dL (5-24); Potassium* 2.9 mmol/L (3.6-5.1)
[2024-03-01] MEDS: POTASSIUM CHLORIDE 10 MEQ/100 ML PIGGYBACK 100 MEQ IVPB ×4 (07:50→11:37)
[2024-03-01] MEDS: MULTIVITAMIN/MINERALS 1 TABLET 1 TAB PO (08:51)
[2024-03-01] MEDS: FOLIC ACID 1 MG TABLET PO (08:51)
[2024-03-01] MEDS: PANTOPRAZOLE SODIUM 40 MG INJ IVP (08:51)
--- NOTE | 2024-03-01 09:51 | PM.IMPN1 ---
Progress Note: A&P Assessment and plan (1) Pancreatitis: Problem details: -h/o current alcohol use disorder -RUQ pain, n/v x 4 days, unable to keep water down (no solids or electrolytes attempted), last normal BM 02/25 -lipase 2379 on admission, improved to 1217, Pancreas not well visualized on RUQ US -LFTs trending up again, AST 17-89-37-179, ALT 077-50-65-91 -mag 2.8, phos 3.8 on admission, potassium trending down -IVF, NPO on admission, pain and nausea management prn -IV PPI (remote h/o gastric ulcer) -02/28 clears started, tolerated, continue -continue to follow labs Status: Acute (2) Alcohol use disorder: Problem details: -whiskey, 4-5 shots daily when she can afford it. Occasional glass of wine. Last ETOH intake Wednesday 02/21 -ETOH from ED draw <0.01 -denies h/o withdrawals, seizures -CIWA protocol - ok to d/c -thiamine, folic acid, MVI -SS for CD eval -counseled patient on quitting alcohol Status: Acute (3) Cholelithiasis: Problem details: -RUQ ultrasound shows Cholelithiasis. There is a large gallstone within the gallbladder measuring 4.1 x 1.1 x 2.7 cm. The gallbladder wall measures 1.5 mm. No pericholecystic fluid. Positive sonographic Desir`s sign according to the productivity engineer worksheet. No evidence of obstruction -afebrile, no leukocytosis, lactate 0.7 -consider further imaging with CT if new or worsening symptoms or no resolve -ED provider discussed with General Surgery, Dr. Pittman - consulted 02/28, following. Current plan to correct acidosis, manage pancreatitis, consider outpatient cholecystectomy possibly as early as Friday Status: Acute (4) Ketoacidosis: Problem details: -On admission: serum CO2 <5, anion gap 29 -> 22, creatinine 1.2, GFR 59, K+ 4.7, glucose 171, lactate 0.7, urine ketones +4, urine glucose negative -VBG added from ED draw 7.055 ->7.086, pCO2 22 ->18, pO2 35.1, HCO3 6 -suspected etiology starvation (prolonged n/v, intolerance oral intake), h/o ETOH abuse -NS bolus = 2L in ED, continue boluses on floor, trending labs, monitoring electrolytes with replacement as needed, maintenance fluids -slowly improving, following labs Status: Acute (5) Metabolic acidosis: Problem details: As above, #4 -on admission: serum CO2 <5, anion gap 29, creatinine 1.2, GFR 59, glucose 171, lactate 0.7 -acute pancreatitis, vomiting with poor oral intake x 4 days, alcohol dependence -VBG ordered, UA, repeat BMP following IVF -continue IVF, monitor labs -slowly improving Status: Acute (6) Fatty liver: Problem details: -abnormal liver panel -RUQ US shows mildly enlarged echogenic liver likely related to fatty infiltration or other intrinsic hepatic parenchymal process -counseled patient on quitting alcohol and losing weight, exercise. Status: Acute (7) Hyperglycemia: Problem details: -glucose in ED 171, 2 years ago 145. Urine negative glucose -H/o gestational diabetes with 3rd , unknown family history (adopted). A1c 5.0 Status: Acute (8) History of gastric ulcer: Problem details: -on PPI IV -03/[address] Pittman - consider upper endoscopy for further evaluation, possibly Friday Status: Acute (9) Hypokalemia: Problem details: -potassium 4.7 on admission, 20 meq piggyback that night; trending down in setting of ongoing IVF resuscitation/maintenance -potassium 2.9 on 03/01. IV potassium bumps ordered. Recheck this afternoon. Oral replacement bid starting this evening Status: Acute Plan Continue to correct acidosis, electrolyte abnormalities, manage pancreatitis. General surgery following, possible upper endoscopy for history of remote gastric ulcer without bleeding. Likely outpatient cholecystectomy possibly Friday. Time Spent With Patient Total time spent: Total time spent caring for the patient today was 45 minutes. This includes time spent for the visit reviewing the chart, time spent during the visit, time spent after the visit and documentation and planning in coordination of care. Subjective Date Seen: 03/01/24 Interval history: Patient is seen sitting up in bed this morning. Appears to look better than from the evening I admitted her to critical care. Reports feeling somewhat better. Continues to have abdominal pain but this is slightly better. Has only had a couple episodes of nausea which we have been trying to strictly control. No further episodes of vomiting. Tolerated clears yesterday. Has remained afebrile. Tachycardia has improved. Exam Narrative: Exam Narrative: PHYSICAL EXAM General: Pleasant, conversant, appears tired otherwise NAD Cardiovascular: RRR, S1S2. No pitting edema Pulmonary: CTA bilaterally without rhonchi, rales, expiratory wheezes. No dyspnea on room air Abdominal: Soft, nondistended, right upper quadrant and mid epigastric pain on palpation, mild guarding Neurological: Alert, answering questions appropriately, cranial nerves intact, no focal findings Extremities: No gross joint deformity or swelling. AROMI. Neurovascularly intact Skin: Warm, dry. Const: Vital Signs, click to edit/add: Vital Signs - 24 hr 02/29/24 11:00 02/29/24 14:40 02/29/24 15:00 Temperature 98.8 F 98.1 F Pulse Rate 95 Pulse Rate [Right Pulse Oximeter] 103 H 95 Respiratory Rate 18 18 Blood Pressure [Le ft Arm] 120/69 129/81 Pulse Oximetry 99 99 Oxygen Delivery Me thod Room Air Room Air 02/29/24 15:00 02/29/24 15:00 02/29/24 20:20 Temperature 98.1 F 98.2 F Pulse Rate Pulse Rate [Right Pulse Oximeter] 95 95 108 H Respiratory Rate 18 18 18 Blood Pressure [Le ft Arm] 129/81 131/92 H Pulse Oximetry 99 98 Oxygen Delivery Me thod Room Air Room Air 02/29/24 23:00 02/29/24 23:00 02/29/24 23:00 Temperature 98.1 F Pulse Rate 91 Pulse Rate [Right Pulse Oximeter] 91 99 Respiratory Rate 18 18 Blood Pressure [Le ft Arm] 132/81 Pulse Oximetry 98 Oxygen Delivery Me thod Room Air 03/01/24 00:00 03/01/24 05:20 03/01/24 07:50 Temperature 98.1 F 98.2 F 99.0 F Pulse Rate Pulse Rate [Right Pulse Oximeter] 99 106 H 101 H Respiratory Rate 18 16 16 Blood Pressure [Le ft Arm] 132/81 138/80 142/79 H Pulse Oximetry 98 97 99 Oxygen Delivery Me thod Room Air Room Air Room Air 03/01/24 09:24 Temperature Pulse Rate 95 Pulse Rate [Right Pulse Oximeter] Respiratory Rate Blood Pressure [Le ft Arm] Pulse Oximetry Oxygen Delivery Me thod Labs Labs: Laboratory Results - last 24 hr 02/29/24 03/01/24 12:02 05:57 WBC 5.16 4.47 L RBC 3.55 L 3.55 L Hgb 10.2 L 10.0 L Hct 32.8 L 32.1 L MCV 92 90 MCH 29 28 MCHC 31 L 31 L RDW Coeff of Ella 15.8 H Plt Count 139 L 131 L Neut % (Auto) 66.8 Lymph % (Auto) 22.5 Daniels % (Auto) 6.6 Eos % (Auto) 2.7 Baso % (Auto) 0.4 Neut # (Auto) 3.45 Lymph # (Auto) 1.16 Daniels # (Auto) 0.30 Eos # (Auto) 0.14 Baso # (Auto) 0.02 Abs Immat Gran (auto) 0.05 Imm/Tot Granulo (auto) 1.0 Sodium 133 L 134 L Potassium 3.3 L 2.9 L* Chloride 108 107 Carbon Dioxide 10 L 14 L Anion Gap 15 13 BUN 4 L < 2 L Creatinine 0.5 0.4 L Estimated Creat Clear 107.43 134.29 Estimated GFR 122 128 Glucose 88 81 Calcium 8.2 L 8.5 Total Bilirubin 0.5 0.5 AST 81 H 176 H ALT 61 H 91 H Alkaline Phosphatase 65 65 Total Protein 7.0 6.5 Albumin 4.3 4.1 Lipase 1217 H
--- NOTE | 2024-03-01 10:12 | NUTR.NU ---
RDN with diet education related to pancreatitis and nutrition screen related to positive MST score for weight loss. Patient admitted with pancreatitis, thought to be associated with alcohol intake. Per general surgery note, patient has a large gallstone that may require surgery. Current weight 170 lb 14.4oz; height 5ft; BMI 33.4 kg/m2. Per weight history, weight loss noted however is not significant loss within 1 year. Current diet is NPO is anticipation for surgery today. No nutrition interventions at this time. RDN will attempt to visit with patient at a later date when more appropriate if still applicable.
[2024-03-01 12:18] LABS: Potassium* 3.4 mmol/L (3.6-5.1)
--- NOTE | 2024-03-01 12:48 | PM.GSPN ---
Subjective Subjective Date Seen: 03/01/24 Interval history: Patient is doing ok this morning. Continues to have pain, but improved. Pain is mainly in the epigastric, less RUQ. Denies any nausea or vomiting. Did tolerate clears yesterday. No other concerns. Exam Narrative: Exam Narrative: Gen: alert and oriented, NAD Abd: soft, mild tenderness epigastric, no guarding or rebound. No RUQ tenderness, Const: Vital Signs, click to edit/add: Vital Signs - 24 hr 02/29/24 14:40 02/29/24 15:00 02/29/24 15:00 Temperature 98.1 F 98.1 F Pulse Rate 95 Pulse Rate [Right Pulse Oximeter] 95 95 Respiratory Rate 18 18 Blood Pressure [Le ft Arm] 129/81 129/81 Pulse Oximetry 99 99 Oxygen Delivery Me thod Room Air Room Air 02/29/24 15:00 02/29/24 20:20 02/29/24 23:00 Temperature 98.2 F Pulse Rate 91 Pulse Rate [Right Pulse Oximeter] 95 108 H Respiratory Rate 18 18 Blood Pressure [Le ft Arm] 131/92 H Pulse Oximetry 98 Oxygen Delivery Me thod Room Air 02/29/24 23:00 02/29/24 23:00 03/01/24 00:00 Temperature 98.1 F 98.1 F Pulse Rate Pulse Rate [Right Pulse Oximeter] 91 99 99 Respiratory Rate 18 18 18 Blood Pressure [Le ft Arm] 132/81 132/81 Pulse Oximetry 98 98 Oxygen Delivery Me thod Room Air Room Air 03/01/24 05:20 03/01/24 07:50 03/01/24 09:24 Temperature 98.2 F 99.0 F Pulse Rate 95 Pulse Rate [Right Pulse Oximeter] 106 H 101 H Respiratory Rate 16 16 Blood Pressure [Le ft Arm] 138/80 142/79 H Pulse Oximetry 97 99 Oxygen Delivery Me thod Room Air Room Air Labs/Imaging Labs Labs: Hypokalemia (2.6) and persistent metabolic acidosis but with improving bicarb (12) Imaging Imaging: No new imaging. Progress Note:A&P Assessment and plan (1) Pancreatitis: Status: Acute Assessment and Plan: Patient admitted for pancreatitis. Metabolic acidosis is improving. New hypokalemia this morning, getting IV replacement. Her pain has improved but is still persistent in the epigastric with radiation to the back. Etiology likely secondary to alcoholic pancreatitis. In the setting of a previous gastric ulcer would also recommend an upper endoscopy to rule out any associated gastritis or ulceration contributing to the discomfort. Additionally, patient has the findings on imaging of a large stone within the gallbladder (4.1 cm). Although gallstone pancreatitis is less likely given the patient's heavy alcohol use, would still recommend removal of her gallbladder, this can be done as an outpatient. Recommend continued electrolyte and fluid replacement. Upper endoscopy to be done once patient is stable for anesthesia, possibly tomorrow. NPO at midnight.
[2024-03-01] MEDS: THIAMINE 100 MG TABLET PO (15:38)
[2024-03-01] MEDS: POTASSIUM CHLORIDE 10 MEQ CAPSULE ER 40 MEQ PO (18:19)
--- NOTE | 2024-03-01 19:33 | PC.NURSE ---
Received pt at 1500: Pt alert, oriented and vitally stable. Pt up independently and tolerates well. clear liquid diet and tolerates well. Crampy pain in abdomen rated 7/10, PRN dilaudid given, pt stated improvement.
[2024-03-01] MEDS: MELATONIN 3 MG TABLET PO (19:44)
[2024-03-01] MEDS: HYDROmorphone 0.5 mg/0.5 ml inj IVP (19:44)
[2024-03-01] MEDS: SODIUM CHLORIDE 0.9 % (FLUSH) 10 ML SYRINGE 5 ML IVF (19:45)
[2024-03-02] VITALS (7 sets, daily range): BP systolic 110–146; BP diastolic 73–92; PULSE 78–105; RESP 16–18; TEMP 36.4–36.8; O2SAT 97–98
[2024-03-02] MEDS: 0.9 % SODIUM CHLORIDE 1000 ml 1,000 ML 150 ML IV ×2 (02:45→11:19)
[2024-03-02 06:22] LABS: HCO3 VBG 17 mmol/L (21-28); PCO2 VBG 31 mmHG (40-50); PO2 VBG 90.9 mmHG (25-47); pH VBG 7.332 (7.32-7.43)
[2024-03-02 06:28] LABS: Hematocrit 32.4 % (33.0-51.0); Hemoglobin* 10.2 gm/dL (12.0-16.0); Mean Corpuscular HGB Conc 32 gm/dL (32-36); Mean Corpuscular Hemoglobin 28 pg (26-34); Mean Corpuscular Volume 90 fL (80-100); Platelet Count* 139 K/uL (140-440); Red Blood Count 3.62 m/uL (4.00-5.20); White Blood Count* 4.08 K/uL (4.50-11.00)
[2024-03-02 06:33] LABS: Slide Review Reflex No
[2024-03-02 06:50] LABS: Albumin* 3.7 g/dL (3.3-5.0)
[2024-03-02 06:51] LABS: Chloride* 104 mmol/L (96-114); Potassium* 3.2 mmol/L (3.6-5.1); Sodium* 133 mmol/L (135-149)
[2024-03-02 06:53] LABS: Bilirubin Total* 0.4 mg/dL (0.1-1.5); Creatinine* 0.4 mg/dL (0.5-1.5); Est. Creatinine Clearance* 134.29; Estimated Glomerular Filt Rate 128 ml/min
[2024-03-02 06:54] LABS: Alanine Aminotransferase* 130 U/L (4-35); Alkaline Phosphatase* 62 U/L (40-150); Anion Gap 13 mEq/L (7-15); Aspartate Amino Transferase* 251 U/L (12-35); Calcium* 8.6 mg/dL (8.4-10.6); Carbon Dioxide* 16 mmol/L (20-32); Glucose* 87 mg/dL (60-115); Lipase* 1557 U/L (23-300); Total Protein* 6.2 g/dL (6.0-8.3)
[2024-03-02 06:59] LABS: Blood Urea Nitrogen* < 2 mg/dL (5-24)
--- NOTE | 2024-03-02 07:11 | CRLHL7_ITS ---
For Patients: As a result of the Cures Act, medical imaging exams and procedure reports are released immediately into your electronic medical record. You may view this report before your referring provider. If you have questions, please contact your health care provider. Indication: Cholelithiasis. Pancreatitis. Technique: Multisequence multiplanar MRI of the abdomen without IV contrast. Comparison: Right upper quadrant abdominal ultrasound dated 02/28/2024, CT abdomen/pelvis dated 07/23/2020. Findings: Liver: Diffuse hepatic steatosis. Bile ducts: No intrahepatic or extrahepatic biliary duct dilation. Gallbladder: Large 3.0 x 2.3 cm gallstone towards the fundus. No gallbladder wall thickening or pericholecystic inflammation identified. Pancreas: Trace fluid adjacent to the pancreatic tail, concerning for component of acute pancreatitis. No significant pancreatic duct dilation. Spleen: Unremarkable. Adrenals: Unremarkable. Kidneys: No hydronephrosis bilaterally. Retroperitoneum: No lymphadenopathy. Visualized Bowel and mesentery: Visualized bowel is nondilated. Vessels: Unremarkable for unenhanced study. Abdominal wall: No acute abdominal wall abnormality. Bones: No suspicious/aggressive focal osseous lesion. Impression: 1. Trace fluid adjacent to the pancreatic tail, concerning for component of acute pancreatitis. Recommend correlation with serum lipase/amylase. 2. Cholelithiasis. No secondary signs of acute cholecystitis. 3. Diffuse hepatic steatosis. Dictated by Johann Pham MD @ 03/02/2024 12:30:02 PM (Electronically Signed)
[2024-03-02] MEDS: FOLIC ACID 1 MG TABLET PO (09:08)
[2024-03-02] MEDS: PANTOPRAZOLE SODIUM 40 MG INJ IVP (09:08)
[2024-03-02] MEDS: MULTIVITAMIN/MINERALS 1 TABLET 1 TAB PO (09:08)
[2024-03-02] MEDS: HYDROmorphone 0.5 mg/0.5 ml inj IVP (09:17)
[2024-03-02] MEDS: POTASSIUM CHLORIDE 10 MEQ CAPSULE ER 40 MEQ PO ×2 (11:19→17:59)
--- NOTE | 2024-03-02 11:38 | PC.SOCIAL ---
Social work computer science intern met with pt to discuss substance use resources. Pt expressed she was not interested in pursuing rehab or treatment options at this time as she had done it before, but that it was fine to leave a resource list in the room. Pt lives in [place] with her and feels she has adequate support with friends and family nearby. She is requesting no further resources at this time, but will reach out to social work if questions arise. Social work to follow up as needed.
--- NOTE | 2024-03-02 11:58 | P.IMPN_ITS ---
Progress Note: A&P Assessment and plan (1) Pancreatitis: Problem details: -h/o current alcohol use disorder -RUQ pain, n/v x 4 days, unable to keep water down (no solids or electrolytes attempted), last normal BM 02/25 -lipase 2379 on admission, improved to 1217, Pancreas not well visualized on RUQ US -LFTs trending up again, AST [id number], ALT 090-30-82-91 -mag 2.8, phos 3.8 on admission, potassium trending down -IVF, NPO on admission, pain and nausea management prn -IV PPI (remote h/o gastric ulcer) -02/28 clears started, tolerated, continue -continue to follow labs 03/02 - lipase 1557, previously 1217. AST 251/ALT 130, 92/101 on admission. Right upper quadrant pain actually improving a bit today. No further nausea or vomiting. As discussed with General Surgery, Dr. Pittman, will obtain MRCP today for further assessment. No plan for EGD today. Status: Acute (2) Alcohol use disorder: Problem details: -whiskey, 4-5 shots daily when she can afford it. Occasional glass of wine. Last ETOH intake Wednesday 02/21 -ETOH from ED draw <0.01 -denies h/o withdrawals, seizures -CIWA protocol - ok to d/c -thiamine, folic acid, MVI -SS for CD eval -counseled patient on quitting alcohol Status: Acute (3) Cholelithiasis: Problem details: -RUQ ultrasound shows Cholelithiasis. There is a large gallstone within the gallbladder measuring 4.1 x 1.1 x 2.7 cm. The gallbladder wall measures 1.5 mm. No pericholecystic fluid. Positive sonographic Desir`s sign according to the case management manager worksheet. No evidence of obstruction -afebrile, no leukocytosis, lactate 0.7 -consider further imaging with CT if new or worsening symptoms or no resolve -ED provider discussed with General Surgery, Dr. Pittman - consulted 02/28, following. Current plan to correct acidosis, manage pancreatitis, consider outpatient cholecystectomy possibly as early as Friday 03/02 - MRCP today Status: Acute (4) Ketoacidosis: Problem details: -On admission: serum CO2 <5, anion gap 29 -> 22, creatinine 1.2, GFR 59, K+ 4.7, glucose 171, lactate 0.7, urine ketones +4, urine glucose negative -VBG added from ED draw 7.055 ->7.086, pCO2 22 ->18, pO2 35.1, HCO3 6 -suspected etiology starvation (prolonged n/v, intolerance oral intake), h/o ETOH abuse -NS bolus = 2L in ED, continue boluses on floor, trending labs, monitoring electrolytes with replacement as needed, maintenance fluids -slowly improving, following labs 03/02 VBG pH 7.332, pCO2 31, HC03 17. Sodium 133, potassium 3.2. Continue gentle IVF for now, remains NPO having previously tolerated clears Status: Acute (5) Metabolic acidosis: Problem details: As above, #4 -on admission: serum CO2 <5, anion gap 29, creatinine 1.2, GFR 59, glucose 171, lactate 0.7 -acute pancreatitis, vomiting with poor oral intake x 4 days, alcohol dependence -VBG ordered, UA, repeat BMP following IVF -continue IVF, monitor labs -slowly improving Status: Acute (6) Fatty liver: Problem details: -abnormal liver panel -RUQ US shows mildly enlarged echogenic liver likely related to fatty infiltration or other intrinsic hepatic parenchymal process -counseled patient on quitting alcohol and losing weight, exercise. -outpatient follow-up with PCP and GI Status: Acute (7) Hyperglycemia: Problem details: -glucose in ED 171, 2 years ago 145. Urine negative glucose -H/o gestational diabetes with 3rd , unknown family history (adopted). A1c 5.0 Status: Acute (8) History of gastric ulcer: Problem details: -on PPI IV -03/[address] Pittman - consider upper endoscopy for further evaluation, possibly Friday - forego for now, awaiting MRCP results Status: Acute (9) Hypokalemia: Problem details: -potassium 4.7 on admission, 20 meq piggyback that night; trending down in setting of ongoing IVF resuscitation/maintenance -potassium 2.9 on 03/01. IV potassium bumps ordered. Recheck this afternoon. Oral replacement bid starting this evening 03/02 potassium 3.2. Increase oral replacement to 40 mEq b.i.d., continue to monitor Status: Acute Time Spent With Patient Total time spent: Total time spent caring for the patient today was 45 minutes. This includes time spent for the visit reviewing the chart, time spent during the visit, time spent after the visit and documentation and planning in coordination of care. Subjective Date Seen: 03/02/24 Interval history: Patient is seen sitting up in bed this morning. Continues to improve. Right upper quadrant pain somewhat better this morning but still present. Nausea has completely resolved. No vomiting since admission. Has not had a bowel movement however in several days. Passing gas. Discussion with General surgery, , yesterday was for planned EGD today, possible cholecystectomy Friday. Lipase is up today after initially trending down. LFTs are also rising. In further discussion, plan will be to forego EGD and obtain MRCP today. Exam Narrative: Exam Narrative: PHYSICAL EXAM General: Pleasant, conversant,NAD Cardiovascular: RRR, S1S2. No pitting edema Pulmonary: CTA bilaterally without rhonchi, rales, expiratory wheezes. No dyspnea on room air Abdominal: Soft, nondistended, right upper quadrant and mid epigastric pain on palpation - improved from yesterday, no guarding Neurological: Alert, answering questions appropriately, cranial nerves intact, no focal findings Extremities: No gross joint deformity or swelling. AROMI. Neurovascularly intact Skin: Warm, dry. Const: Vital Signs, click to edit/add: Vital Signs - 24 hr 03/01/24 13:10 03/01/24 15:00 03/01/24 15:00 Temperature 97.5 F L 98.5 F Pulse Rate [Right Pulse Oximeter] 94 95 95 Respiratory Rate 18 18 18 Blood Pressure [Le ft Arm] 146/92 H 143/84 H Pulse Oximetry 96 99 Oxygen Delivery Me thod Room Air Room Air 03/01/24 20:01 03/01/24 22:56 03/01/24 22:58 Temperature 97.4 F L 97.9 F Pulse Rate [Right Pulse Oximeter] 100 99 Respiratory Rate 18 18 18 Blood Pressure [Le ft Arm] 138/85 121/80 Pulse Oximetry 98 98 Oxygen Delivery Me thod Room Air Room Air 03/02/24 03:00 03/02/24 07:00 03/02/24 07:00 Temperature 98 F 98.3 F Pulse Rate [Right Pulse Oximeter] 78 93 93 Respiratory Rate 18 18 18 Blood Pressure [Le ft Arm] 123/73 133/85 Pulse Oximetry 98 98 Oxygen Delivery Me thod Room Air Room Air Labs Labs: Laboratory Results - last 24 hr 03/01/24 03/02/24 12:00 05:56 WBC 4.08 L RBC 3.62 L Hgb 10.2 L Hct 32.4 L MCV 90 MCH 28 MCHC 32 Plt Count 139 L VBG pH 7.332 VBG pCO2 31 L VBG pO2 90.9 H VBG HCO3 17 L Sodium 133 L Potassium 3.4 L 3.2 L Chloride 104 Carbon Dioxide 16 L Anion Gap 13 BUN < 2 L Creatinine 0.4 L Estimated Creat Clear 134.29 Estimated GFR 128 Glucose 87 Calcium 8.6 Total Bilirubin 0.4 AST 251 H ALT 130 H Alkaline Phosphatase 62 Total Protein 6.2 Albumin 3.7 Lipase 1557 H
--- NOTE | 2024-03-02 15:38 | PC.NURSE ---
Nursing Care Hours: [id number] Pt this shift calm and cooperative. rated pain upper abdomen 6/10 this morning. Discussed this with pt as pt received pain meds x1 at HS yesterday. Central Supply Supervisor asked if pain was better yesterday and if she felt like it is increasing again. Pt states she didn't realize she only had it once yesterday. After the morning dose, pt has not c/o pain since. Independent in the room. Pleasant and making jokes with staff. IV SL. Trying clear diet, in the middle of tray at end of shift. MRI scan tolerated well.
--- NOTE | 2024-03-02 15:55 | PM.GSPN ---
Subjective Subjective Date Seen: 03/02/24 Interval history: Patient is doing better today. Pain continues to improve. She tolerated clear liquids this evening and is craving real food Is very anxious to leave the hospital, but understands she has to stay. Exam Narrative: Exam Narrative: General: Alert and oriented, no acute distress Abdomen: Soft, some mild epigastric tenderness with deep palpation, no guarding or rebound. Const: Vital Signs, click to edit/add: Vital Signs - 24 hr 03/01/24 20:01 03/01/24 22:56 03/01/24 22:58 Temperature 97.4 F L 97.9 F Pulse Rate [Right Pulse Oximeter] 100 99 Respiratory Rate 18 18 18 Blood Pressure [Le ft Arm] 138/85 121/80 Pulse Oximetry 98 98 Oxygen Delivery Me thod Room Air Room Air 03/02/24 03:00 03/02/24 07:00 03/02/24 07:00 Temperature 98 F 98.3 F Pulse Rate [Right Pulse Oximeter] 78 93 93 Respiratory Rate 18 18 18 Blood Pressure [Le ft Arm] 123/73 133/85 Pulse Oximetry 98 98 Oxygen Delivery Me thod Room Air Room Air 03/02/24 11:00 Temperature Pulse Rate [Right Pulse Oximeter] 84 Respiratory Rate 18 Blood Pressure [Le ft Arm] 136/91 H Pulse Oximetry 98 Oxygen Delivery Me thod Room Air Labs/Imaging Labs Labs: Labs demonstrating increasing ALT/AST. Lipase is also trending up (1557). Acidosis has improved. Sodium 134. Imaging Imaging: MRCP demonstrating single large stone of the gallbladder. No evidence of cholecystitis. Trace fluid around the tail of the pancreas consistent with mild pancreatitis. Progress Note:A&P Assessment and plan (1) Pancreatitis: Status: Acute Assessment and Plan: Patient admitted for pancreatitis. Metabolic acidosis has now resolved. Patient tolerated clears yesterday. Abdominal pain continues to improve. Due to an increase in her lipase this morning an MRCP was obtained. No evidence of cholecystitis or choledocholithiasis. Mild edema of the pancreatic tail consistent with a mild pancreatitis. At this time agree with continued PPI, no need for an upper endoscopy. I do think the majority of the patient's pain is associated with her resolving pancreatitis. This is likely secondary to alcohol use, but would still recommend she have her gallbladder removed as an outpatient. She is scheduled for the procedure as an outpatient on Monday 03/05 at 9am.
[2024-03-02] MEDS: THIAMINE 100 MG TABLET PO (16:19)
[2024-03-02] MEDS: MELATONIN 3 MG TABLET PO (20:20)
[2024-03-02] MEDS: SODIUM CHLORIDE 0.9 % (FLUSH) 10 ML SYRINGE 5 ML IVF (20:20)
[2024-03-03 02:57] VITALS: BP 146/90; PULSE 93; RESP 16; TEMP 36.3; O2SAT 99
--- NOTE | 2024-03-03 03:05 | PC.NURSE ---
Pt rested well this night. reporting zero pain. No N/V. Ambulating IND. BM this evening. Voiding.
[2024-03-03 06:11] LABS: HCO3 VBG 23 mmol/L (21-28); PCO2 VBG 37 mmHG (40-50); PO2 VBG 41.4 mmHG (25-47); pH VBG 7.403 (7.32-7.43)
[2024-03-03 06:32] LABS: Hematocrit 35.2 % (33.0-51.0); Hemoglobin* 11.4 gm/dL (12.0-16.0); Mean Corpuscular HGB Conc 32 gm/dL (32-36); Mean Corpuscular Hemoglobin 29 pg (26-34); Mean Corpuscular Volume 88 fL (80-100); Platelet Count* 165 K/uL (140-440); White Blood Count* 5.48 K/uL (4.50-11.00)
[2024-03-03 06:47] LABS: Chloride* 101 mmol/L (96-114)
[2024-03-03 06:48] LABS: Albumin* 4.2 g/dL (3.3-5.0); Sodium* 133 mmol/L (135-149)
[2024-03-03 06:49] LABS: Potassium* 3.6 mmol/L (3.6-5.1)
[2024-03-03 06:51] LABS: Alanine Aminotransferase* 145 U/L (4-35); Alkaline Phosphatase* 61 U/L (40-150); Anion Gap 10 mEq/L (7-15); Aspartate Amino Transferase* 186 U/L (12-35); Bilirubin Total* 0.4 mg/dL (0.1-1.5); Blood Urea Nitrogen* 4 mg/dL (5-24); Calcium* 9.4 mg/dL (8.4-10.6); Carbon Dioxide* 22 mmol/L (20-32); Creatinine* 0.3 mg/dL (0.5-1.5); Est. Creatinine Clearance* 179.05; Estimated Glomerular Filt Rate 137 ml/min; Glucose* 117 mg/dL (60-115); Total Protein* 6.8 g/dL (6.0-8.3)
[2024-03-03 06:55] LABS: Slide Review Reflex No
[2024-03-03 07:00] VITALS: BP 131/94; PULSE 90; RESP 16; TEMP 36.5; O2SAT 99
[2024-03-03 07:02] LABS: Lipase* 2936 U/L (23-300)
[2024-03-03] MEDS: MULTIVITAMIN/MINERALS 1 TABLET 1 TAB PO (08:38)
[2024-03-03] MEDS: PANTOPRAZOLE SODIUM 40 MG INJ IVP (08:38)
[2024-03-03] MEDS: FOLIC ACID 1 MG TABLET PO (08:38)
[2024-03-03] MEDS: SODIUM CHLORIDE 0.9 % (FLUSH) 10 ML SYRINGE 5 ML IVF (08:38)
[2024-03-03] MEDS: POTASSIUM CHLORIDE 10 MEQ CAPSULE ER 40 MEQ PO (08:38)
--- NOTE | 2024-03-03 10:21 | PM.EN ---
Chart Event Note Chart Event Note: Patient transferring for further work up given increasing lipase. Will cancel scheduled Laparoscopic Cholecystectomy. Patient can follow up as an outpatient in General Surgery clinic if her surgery is not performed at the OSH.
[2024-03-03 11:00] VITALS: BP 156/95; PULSE 100; RESP 16; TEMP 36.5; O2SAT 98
--- NOTE | 2024-03-03 11:22 | P.DS_ITS ---
DS: Providers Provider Date Seen: 03/03/24 Date of admission: 02/28/24 17:10 Primary care physician: Zuri Baig DO Admitting Clinician: Daria Christianson MD Consults: 02/28/24 15:27 Consult to Advertising Assistant Manager [CONS] Routine Comment: Reason for Consult:: Social Service Consult Substance Abuse Screening 02/29/24 06:00 Consult to Physician [CONS] Routine Comment: Consulting Provider: June Pittman Has provider been notified: No Attending Physician on discharge: Farnaz Lyon [facility], [facility] Date of Discharge: 03/03/24 DS: Diagnosis Discharge Diagnosis (1) Pancreatitis: Status: Acute Problem details: -h/o current alcohol use disorder -RUQ pain, n/v x 4 days, unable to keep water down (no solids or electrolytes attempted), last normal BM 02/25 -lipase 2379 on admission, improved to 1217, Pancreas not well visualized on RUQ US -LFTs trending up again, AST [id number], ALT [id number] -mag 2.8, phos 3.8 on admission, potassium trending down -IVF, NPO on admission, pain and nausea management prn -IV PPI (remote h/o gastric ulcer) -02/28 clears started, tolerated, continue -continue to follow labs 03/02 - lipase 1557, previously 1217. AST 251/ALT 130, 92/101 on admission. Right upper quadrant pain actually improving a bit today. No further nausea or vomiting. As discussed with General Surgery, Dr. Pittman, will obtain MRCP today for further assessment. No plan for EGD today. Discharge - AMA On 03/03, labs continue to trend up. Clinically, patient feeling better but continues to have RUQ pain, worsened with palpation. Was able to tolerate a chicken breast, banana, chips without nausea vomiting. Discussed with General surgery, Dr. Pittman, recommending GI consult. Called to [facility], discussing with GI telephone directory deliverer. Recommending further evaluation, possibly with EUS and depending on those results possible ERCP. Discuss transfer with patient and significant other, while hesitant initially was onboard for transfer, but then changed her mind, refusing transfer and requesting to leave AMA. Understands the risks of becoming more ill, in setting of having come in actually requiring critical care level of care. Recommended bland, low-fat diet, avoiding alcohol and smoking. We were able to set her up for a primary care clinic appointment tomorrow and a [facility] appointment on 03/08 though she may need more urgent evaluation prior to this. She understands to return to ED if new or worsening symptoms - would recommend transfer to tertiary facility from this facility if she returns to our ED. Dr. Pittman has cancelled tentative cholecystectomy for Friday. (2) Alcohol use disorder: Status: Acute Problem details: -whiskey, 4-5 shots daily when she can afford it. Occasional glass of wine. Last ETOH intake Wednesday 02/21 -ETOH from ED draw <0.01 -denies h/o withdrawals, seizures -CIWA protocol - ok to d/c -thiamine, folic acid, MVI -SS for CD eval -counseled patient on quitting alcohol Discharged AMA -avoid all alcohol (3) Cholelithiasis: Status: Acute Problem details: -RUQ ultrasound shows Cholelithiasis. There is a large gallstone within the gallbladder measuring 4.1 x 1.1 x 2.7 cm. The gallbladder wall measures 1.5 mm. No pericholecystic fluid. Positive sonographic Desir`s sign according to the ultra flatbed owner operator worksheet. No evidence of obstruction -afebrile, no leukocytosis, lactate 0.7 -consider further imaging with CT if new or worsening symptoms or no resolve -ED provider discussed with General Surgery, Dr. Pittman - consulted 02/28, following. Current plan to correct acidosis, manage pancreatitis, consider outpatient cholecystectomy possibly as early as Friday 03/02 - MRCP today Discharged AMA - recommending further workup with Gastroenterology, possibly EUS -> ERCP if necessary. Acute hepatitis panel ordered and pending at time of discharge. [facility] appt 03/08 earliest, but may need more urgent follow up. Tentative cholecystectomy canceled for 03/[address] Pittman in lieu of further work up. (4) Ketoacidosis: Status: Acute Problem details: -On admission: serum CO2 <5, anion gap 29 -> 22, creatinine 1.2, GFR 59, K+ 4.7, glucose 171, lactate 0.7, urine ketones +4, urine glucose negative -VBG added from ED draw 7.055 ->7.086, pCO2 22 ->18, pO2 35.1, HCO3 6 -suspected etiology starvation (prolonged n/v, intolerance oral intake), h/o ETOH abuse -NS bolus = 2L in ED, continue boluses on floor, trending labs, monitoring electrolytes with replacement as needed, maintenance fluids -slowly improving, following labs 03/02 VBG pH 7.332, pCO2 31, HC03 17. Sodium 133, potassium 3.2. Continue gentle IVF for now, remains NPO having previously tolerated clears Discharged AMA - resolved (5) Metabolic acidosis: Status: Acute Problem details: As above, #4 -on admission: serum CO2 <5, anion gap 29, creatinine 1.2, GFR 59, glucose 171, lactate 0.7 -acute pancreatitis, vomiting with poor oral intake x 4 days, alcohol dependence -VBG ordered, UA, repeat BMP following IVF -continue IVF, monitor labs -slowly improving Discharged AMA - resolved (6) Fatty liver: Status: Acute Problem details: -abnormal liver panel -RUQ US shows mildly enlarged echogenic liver likely related to fatty inf iltration or other intrinsic hepatic parenchymal process -counseled patient on quitting alcohol and losing weight, exercise. -outpatient follow-up with PCP and GI (7) Hyperglycemia: Status: Acute Problem details: -glucose in ED 171, 2 years ago 145. Urine negative glucose -H/o gestational diabetes with 3rd , unknown family history (adopted). A1c 5.0 (8) History of gastric ulcer: Status: Acute Problem details: -on PPI IV -03/[address] Pittman - consider upper endoscopy for further evaluation, possibly Friday - forego for now, awaiting MRCP results Discharged AMA - continue PPI. [facility] follow-up. (9) Hypokalemia: Status: Acute Problem details: -potassium 4.7 on admission, 20 meq piggyback that night; trending down in setting of ongoing IVF resuscitation/maintenance -potassium 2.9 on 03/01. IV potassium bumps ordered. Recheck this afternoon. Oral replacement bid starting this evening 03/02 potassium 3.2. Increase oral replacement to 40 mEq b.i.d., continue to monitor Discharged AMA - potassium 3.6 on discharge DS: Summary Hospital Course Hospital Course: [age] year old female past medical history significant for alcohol abuse disorder, tobacco dependence, remote history of gastric ulcer was admitted to th e critical care unit for urgent management ketoacidosis with acute alcoholic pancreatitis and evidence of cholelithiasis. Course of care and details as noted above. Ketoacidosis resolved prior to discharge. Right upper quadrant pain persists, slightly improve, with persistent LFT and lipase elevations. MRCP showing persistent acute pancreatitis on 03/02. Discussed with [facility], recommending f urther workup, possible EUS, possibly ERCP. Patient refused transfer, requesting to leave AMA. Continue PPI. Follow-up with PCP 03/04. Follow-up with Gastroenterology 03/08 - though may need more urgent evaluation. Return to ED if new or worsening symptoms - would recommend transfer to tertiary facility in order to obtain recommended imaging and further work up. Remainder of chronic medical comorbidities were monitored and managed with home medications. Time spent discussing smoking cessation with patient: 3 to 10 minutes Status at Discharge Functional status at discharge: independent ambulation Overall status at discharge: patient is not back to baseline Time Spent with Patient Time attestation: Total time spent providing and/or coordinating discharge services: Time spent: Greater than 30 minutes Exam Narrative: Exam Narrative: PHYSICAL EXAM General: Pleasant, conversant, NAD Cardiovascular: RRR Pulmonary: No dyspnea Abdomen: Nondistended, right-sided, RUQ, midepigastric tenderness on palpation without guarding Neurological: Alert, answering questions appropriately Skin: Warm, dry. Const: Vital Signs, click to edit/add: Vital Signs - 24 hr 03/02/24 15:00 03/02/24 15:00 03/02/24 19:05 Temperature 97.6 F 97.9 F Pulse Rate [Right Pulse Oximeter] 96 96 105 H Respiratory Rate 18 18 16 Blood Pressure [Le ft Arm] 146/91 H 128/92 H Pulse Oximetry 98 98 Oxygen Delivery Me thod Room Air Room Air 03/02/24 22:17 03/02/24 22:21 03/03/24 02:57 Temperature 98.2 F 97.4 F L Pulse Rate [Right Pulse Oximeter] 97 97 93 Respiratory Rate 16 16 16 Blood Pressure [Le ft Arm] 110/86 146/90 H Pulse Oximetry 97 99 Oxygen Delivery Me thod Room Air Room Air 03/03/24 07:00 03/03/24 07:00 03/03/24 11:00 Temperature 97.7 F 97.7 F Pulse Rate [Right Pulse Oximeter] 90 90 100 Respiratory Rate 16 16 16 Blood Pressure [Le ft Arm] 131/94 H 156/95 H Pulse Oximetry 99 98 Oxygen Delivery Me thod Room Air Room Air DS: Data Data Completed and Pending Labs on day of discharge: Labs from last 24 hours 03/03/24 03/03/24 10:16 05:34 WBC 5.48 RBC 4.00 Hgb 11.4 L Hct 35.2 MCV 88 MCH 29 MCHC 32 Plt Count 165 VBG pH 7.403 VBG pCO2 37 L VBG pO2 41.4 VBG HCO3 23 Sodium 133 L Potassium 3.6 Chloride 101 Carbon Dioxide 22 Anion Gap 10 BUN 4 L Creatinine 0.3 L Estimated Creat Clear 179.05 Estimated GFR 137 Glucose 117 H Calcium 9.4 Total Bilirubin 0.4 AST 186 H ALT 145 H Alkaline Phosphatase 61 Total Protein 6.8 Albumin 4.2 Lipase 2936 H Hepatitis A IgM Ab Pending Hep Bs Antigen Pending Hep B Core IgM Ab Pending Hep C Ab Index (JANETTE) Pending Hep C Ab Interp JANETTE Pending Hepatitis Interpret Pending Lab Acknowledgement Test Added Imaging Abdomen ultrasound: Attestation: I have reviewed the pertinent imaging results. Radiologist's impression: Cholelithiasis. There is a large gallstone within the gallbladder measuring 4.1 x 1.1 x 2.7 cm. The gallbladder wall measures 1.5 mm. No pericholecystic fluid. Positive sonographic Desir`s sign according to the guest relations representative worksheet. Enlarged echogenic liver which could reflect fatty infiltration or other intrinsic hepatic parenchymal process. The proximal aorta and IVC are normal. The proximal aorta measures 2.3 cm. The right kidney is negative for obstruction. It measures 10.3 x 4.7 x 4.6 cm. The right renal cortex measures 1.4 cm. The pancreas although incompletely visualized is normal where seen. The tail is obscured by bowel gas. The main portal vein is patent with flow in the normal direction. IMPRESSION: 1. Cholelithiasis. Possible cholecystitis given the positive sonographic Desir`s sign. Clinical and laboratory correlation are recommended. Surgical consultation is warranted. 2. Mildly enlarged echogenic liver likely related to fatty infiltration or other intrinsic hepatic parenchymal process. 3. Incomplete visualization of the pancreas. No upper abdominal ascites. No hydronephrosis of the right kidney. MRCP: Attestation: I have reviewed the pertinent imaging results. Radiologist's impression: Liver: Diffuse hepatic steatosis. Bile ducts: No intrahepatic or extrahepatic biliary duct dilation. Gallbladder: Large 3.0 x 2.3 cm gallstone towards the fundus. No gallbladder wall thickening or pericholecystic inflammation identified. Pancreas: Trace fluid adjacent to the pancreatic tail, concerning for component of acute pancreatitis. No significant pancreatic duct dilation. Spleen: Unremarkable. Adrenals: Unremarkable. Kidneys: No hydronephrosis bilaterally. Retroperitoneum: No lymphadenopathy. Visualized Bowel and mesentery: Visualized bowel is nondilated. Vessels: Unremarkable for unenhanced study. Abdominal wall: No acute abdominal wall abnormality. Bones: No suspicious/aggressive focal osseous lesion. Impression: 1. Trace fluid adjacent to the pancreatic tail, concerning for component of acute pancreatitis. Recommend correlation with serum lipase/amylase. 2. Cholelithiasis. No secondary signs of acute cholecystitis. 3. Diffuse hepatic steatosis. Discharge Plan Discharge Disposition: Left Against Medical Advice Date of Admission: 02/28/24 17:10 Attending Provider on Discharge: Farnaz Lyon Consulting Providers: June Pittman Primary Care Provider: Zuri Baig Condition: Stable Discharge Medications: New pantoprazole [Protonix] 40 mg tablet,delayed release (DR/EC) 40 mg PO DAILY Qty: 30 0RF Discharge Orders: Discharge Order (Routine); Ordered 03/03/24 Ordered By: Farnaz Lyon AMA Form Signed: Yes Discharge Comments: Follow up with PCP in 1-3 days. You will need a consult with [facility] as soon as possible. Return to an ED if new or worsening symptoms.
--- NOTE | 2024-03-03 11:25 | PC.NURSE ---
Patient alert and oriented, VSS. Patient on RA tolerating a reg. bland diet. Patient denies N/V/SOB. Patient's IV removed intact. Patient left AMA at 1120. Paperwork signed, patient verbalized understanding of instructions. Copy of AMA form given to patient. Referrals made and Doctor's appointments made.
[2024-03-04 22:21] LABS: Hep A Ab, IgM Negative (Negative); Hep B Core Ab, IgM Negative (Negative); Hep B Surface Antigen Negative (Negative); Hep C Ab by CIA Index 0.13 IV; Hep C Ab by CIA Interp Negative (Negative)
== END 2024-03-03 11:20 | disposition left against medical advice (07) | DRG 439 ==
LOC: ED 12:02 → MEDSURG 15:19
PROVIDERS: Student in an Organized Health Care Education/Training Program; Admitting Provider Physician Assistant; Emergency Provider Emergency Medicine Emergency Medical Services; PCP Family Medicine; Visit Provider Family Medicine
DX: K85.20 Alcohol induced acute pancreatitis without necrosis or infection (principal); E87.21 Acute metabolic acidosis; F10.188 Alcohol abuse with other alcohol-induced disorder; F12.90 Cannabis use, unspecified, uncomplicated; Y90.0 Blood alcohol level of less than 20 mg/100 ml; K80.20 Calculus of gallbladder without cholecystitis without obstruction; K76.0 Fatty (change of) liver, not elsewhere classified; R73.9 Hyperglycemia, unspecified; E87.6 Hypokalemia; Z53.29 Procedure and treatment not carried out because of patient's decision for other reasons; E66.9 Obesity, unspecified; Z68.32 Body mass index [BMI] 32.0-32.9, adult; F11.90 Opioid use, unspecified, uncomplicated; F17.210 Nicotine dependence, cigarettes, uncomplicated; Z87.11 Personal history of peptic ulcer disease
CPT/HCPCS: 36415; 74181; 76705; 80048; 80053; 80074; 80076; 80306; 81001; 81003; 82077; 82803; 83036; 83605; 83690; 83735; 84100; 84132; 85025; 85027; 87086; 93005; 99284; 99285; A9153; A9270; J0780; J1171; J2405; J2470; J3411; J3480; J7030

== ENCOUNTER 2025-03-17 03:40 | Emergency (ER) | payer MEDICAID, SELFPAY ==
--- OUTSIDE RECORDS SUMMARY | 2025-03-17 03:42 | XMS_ITS | Clinical Summary ---
Author Organization 1bib [facility] Address Formerly [facility] [place] [address] Care Team Providers Care Rn Social Work Name Role Phone Zuri Baig DO Primary Care Provider [phone] Allergies No known active allergies Medications cholecalciferol (Vitamin D) 1,000 unit capsuleIndicatio ns:Depression, major, single episode, severe (HC),Anxiety Take 1 Capsule (1,000 units) by mouth once daily. 90 Capsule 3 2 Active triamcinolone (ARISTOCORT; KENALOG) 0.1 % creamIndications :Rash Apply topically to affected area(s) 2 times daily. Until resolved 80 g 2 Active acamprosate (CAMPRAL) 333 mg tabletIndication s:Alcohol abuse Take 2 Tablets (666 mg) by mouth 3 times daily. 180 Tablet 1 2 Active cyanocobalamin (Vitamin B-12) 1,000 mcg tabletIndication s:Vitamin B12 deficiency Take 1 Tablet (1,000 mcg) by mouth once daily. 90 Tablet 3 2 Active hydrOXYzine HCL (ATARAX) 10 mg tabletIndication s:Rash and nonspecific skin eruption Take 1-2 Tablets (10-20 mg) by mouth every 6 hours if needed for Itching. 30 Tablet 1 2 Active cetirizine (ZYRTEC) 10 mg tabletIndication s:Hives Take 1 Tablet (10 mg) by mouth once daily. 30 Tablet 1 2 Active triamcinolone 0.5% (ARISTOCORT) 0.5 % creamIndications :Rash Apply topically to affected area(s) three times daily. Apply to skin plaques on knees and ankles twice daily until resolved. 454 g 2 Active omeprazole (PRILOSEC) 20 mg Delayed-Release capsuleIndicatio ns:Gastric ulcer, unspecified chronicity, unspecified whether gastric ulcer hemorrhage or perforation present Take 1 Capsule (20 mg) by mouth once daily before a meal. Take 30-60 minutes before a meal/food once a day. 30 Capsule 2 2 Active Hospital, Clinic, or Other Facility Administered Medication Ordered Dose Route Frequency Start Date End Date Status cyanocobalamin (VITAMIN B12) 1,000 mcg/mL injection 1,000 mcgIndications:Vitami n B12 deficiency 1000 mcg IM Q 4 WEEKS (28 DAYS) 01/04/2022 Active Active Problems Problem Noted Date Diagnosed Date Depression, major, single episode, severe 2023 Acute gastric ulcer without hemorrhage or perfor ation 12/28/2021 Overview (12/28/2021): EGD 12/2021 ulcer, omeprazole for 3 months Vitamin B12 deficiency 11/11/2021 premature rupture of membranes (PPROM) with onset of labor within 24 hours of rupture in third trimester, antepartum 12/07/2015 S/P section 12/07/2015 S/P tubal ligation 12/07/2015 Vaginal bleeding during , antepartum Cervical polyp 11/09/2015 Previous section x 3 complicating pregn belinda 11/09/2015 Unwanted fertility 11/09/2015 History of loop electrosurgi jeannine excision procedure (LEEP) of cervix affecting in third trimester 11/09/2015 History of MRSA infection 11/09/2015 Overview (12/02/2015): Negative MRSA nares culture 11/09/15 Repeat MRSA culture 11/30/2015 negative. Anemia complicating in third trimester 11/09/2015 Abnormal ultrasound 11/09/2015 Overview (11/22/2015): Double Bubble sign found level 2 US at [facility]. RECOMMENDATIONS: -Return to primary provider for continued care after discharge from the hospital. -Discussed the relevance of Double bubble sign (fluid filled stomach and Duodenum. Persistent fluid in duodenum is abnormal. 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 No other anomalies noted today). -Recommended genetic counseling today. Planned [place] NIPT test on Friday with primary after discharge. Our genetic youth officer will follow up on the NIPT test results. Maternal history is significant for previous baby with reflux and difficulty to feed for 6 months due to reflux and vomiting (History suspicious GI abnormality, No records available for review). Recommended weekly BPP NST until delivery starting 32 weeks due to the risk polyhydramnios from GI anomaly. complicated by rig ht umbilical cord varix, antepartum 11/09/2015 care, subsequent in second tr imester 08/29/2015 Overview (12/07/2015): Repeat c/s, will be her 4th c/s. See consult Dr Knight. Repeat c/s scheduled 12/27/15 at 37 4/7wks, scheduled to have betamethasone at 28wks per Dr Knight. Desires tubal, consent signed with Dr Knight Seen L&D for vaginal spotting at 20wks, found to have endocervical polyp. Cervix 3.1cm. Also had bleeding 11/09/15, sent to [place] and given steroids. Had double bubble on US, harmony screen ordered. See discharge recommendations. Getting regular antepartum monitoring It's a boy! TdaP 10/25/15 TIMBO III (cervical intraepithelial neoplasia III) 07/05/2015 Overview (01/07/2022): 02/23/2004 LSIL cannot exclude HSIL 03/27/2004 [place] TIMBO II-III 04/18/2004 LEEP TIMBO II-III, Positive margins 08/01/2004 NIL 04/30/2005 NIL 03/23/2007 LSIL 01/22/2013 NIL 07/04/2015 NIL/HPV negative 08/24/2020 ASCUS/HPV+ 12/25/2021 ASCUS/HPV+, HPV 18+ 01/01/2022 [place]: TIMBO I Provider Plan: Pap/HPV due 12/2022 History of 01/22/2013 Supervision of other normal 01/01/2013 Migraine 10/14/2012 Resolved Problems Problem Noted Date Diagnosed Date Resolved Date Placenta previa antepartum in third trimester 11/09/19 16 11/09/2015 Abnormal quad screen 03/19/2013 016 Overview (03/19/2013): Downs syndrome screen positive: Average risk 1:295, patient's risk 1:239. Declined perinatology consult. care, subsequent 01/22/2013 08/29/2015 Overview (04/27/2013): It's a boy! Abnormal Pap smear of cervix 01/22/2013 09/06/2020 Overview (01/22/2013): History of LEEP in 2004 LSIL (low grade squamous int raepithelial lesion) on Pap smear 09/06/2020 Overview (02/09/2013): 02/2004, 03/2007 Immunizations Immunization Administration Dates Next Due Influenza, IIV3 (Age >=3 years) 02/28/2006 MMR 08/03/1996,04/14/1995 Pneumococcal Poly,23-Valent (Pneumovax) 02/08/20 10 Td (Age >=7 Years) 01/26/2010,08/03/1996, 996 Tdap 10/25/2015,06/25/2013 Family History Medical History Relation Name Comments Genetic Other pt is adopted Relation Name Status Comments Other Social History Tobacco Use Types Packs/Day Years Used Date Smoking Tobacco: Every Day Cigarettes 0 Smokeless Tobacco: Never Tobacco Cessation:Ready to Q uit: No; Counseling Given: Yes Comments:started age 13 Alcohol Use Standard Drinks/Week Comments Not Currently 0 (1 standard drink = 0.6 oz pur e alcohol) PHQ-2 Answer Date Recorded PHQ-2 TOTAL SCORE 2 12/25/2021 Social Connections Answer Date Recorded Do you often feel lonely or isolated from those around you? 0 03/04/2024 Alcohol Use Answer Date Recorded How often do you have a drink containing alcohol ? 3 10/30/2021 How many drinks containing a lcohol do you have on a typical day when you are drinking? 1 10/30/2021 How often do you have five or more drinks on one occasion? 1 10/30/2021 Financial Resource Strain Answer Date R ecorded Difficulty of Paying Living Expenses 3 03/04/2024 Difficulty of Paying Living Expenses Not on file 03/04/2024 Food Insecurity Answer Date Recorded Do you worry your food will run out before you are able to buy more? 1 03/04/2024 Transportation Needs Answer Date Record ed Does lack of transportation keep you from medica l appointments? 1 03/04/2024 Does lack of transportation keep you from work, meetings or getting things that you need? 1 03/04/2024 Housing Stability Answer Date Recorded What is your housing situation today? 1 03/04/2024 Utilities Answer Date Recorded Do you have trouble paying f or utilities (for example, heat, electricity, water, phone)? 1 03/04/2024 Comments No Sex and Gender Information Value Date Recorded Sex Assigned at Not on file Legal Sex Female 6:15 AM CREAM DUMPER Gender Identity Not on file Sexual Orientation Not on file Obstetrics History Para Term AB IAB SAB Ectopic Multiple Livin g Live Births 5 4 3 1 1 0 1 4 4 Date Outcome GA Total Labor Labor/2nd/3rd Weight Sex Type Anes PTL Vanna A1 A5 Name Clin 2005 Term 39w 0d 2.86 kg (6 lb 5 oz) F C-Sec tion Y Livin g Radha Johns Comments:Breech 2007 Term 38w 0d 2.69 kg (5 lb 15 oz) F C-Sec tion Livin g Marlena 2011 SAB 10w 0d 2013 Term 39w 0d 2.61 kg (5 lb 12 oz) M CS-Un spec Spinal Livin g Darrius Complications:None 2015 34w 5d 1.94 kg (4 lb 4.4 oz) M CS-LT ranv Spinal Livin g 8 9 OLY WEINSTEIN Delivery Location:[facility] Last Filed Vital Signs Vital Sign Reading Time Taken Comments Blood Pressure 120/84 03/04/2024 2:26 PM CREAM DUMPER Pulse 100 03/04/2024 2:26 PM CREAM DUMPER Temperature 36.7 C (98.1 F) 03/04/2024 2:26 PM CREAM DUMPER Respiratory Rate 16 12/10/2015 8:24 AM CDT Oxygen Saturation 99% 03/04/2024 2:26 PM CREAM DUMPER Inhaled Oxygen Concentration - - Weight 77.8 kg (171 lb 8 oz) 03/04/2024 2:26 PM CREAM DUMPER Height 151.1 cm (4' 11.5) 03/04/2024 2:26 PM CS T Body Mass Index 34.06 03/04/2024 2:26 PM CREAM DUMPER Plan of Treatment Health Maintenance Due Date Last Done Comments Hepatitis B series for 19+ ( 1 of 3 - 19+ 3-dose series) 10/15/2002 HPV series for age 9-45 (1 - 3-dose SCDM series) 10/15/2010 Pneumococcal series for age 6-49 (2 of 2 - PCV) 02/07/2011 02/07/2010 Depression screening for age 12+ 12/28/2022 12/28/2021, 12/26/2021, 12/25/2021, Additional history exists COVID-19 vaccine series (2024- season) 2024 Influenza Vaccine (#1) 2024 02/28/2006 Pap test for age 21-65 01/01/2025 2 (Verified in Care Everywhere or Patient Record), 12/25/2021, 12/25/2021, Additional history exists BMI (ht and wt on same day) for age 18+ 03/04/2025 03/04/2024, 12/25/2021, 08/24/2020, Additional history exists Tetanus booster 10/24/2025 10/25/2015, 06/12, 01/26/2010, Additional history exists RSV vaccine for adults or (1 - 1-dose 75+ series) 10/15/2058 HIV for age 15-65 Completed 05/16/2015, , 02/03/2007 Hepatitis C screening for ag e 18-79 Completed 11/06/2021, 05/16/2015 Procedures Procedure Name Priority Date/Time Associated Diagnosis Comments HPV HIGH RISK Routine 12/25/2021 2:18 PM CDT ASCUS with positive high risk HPV cervical ACUTE HEPATITIS PANEL Routine 11/06/2021 2:29 PM CDT Elevated liver enzymes Anemia of unknown etiology ANTI HIV 1/2 Routine 05/16/2015 9:17 AM CREAM DUMPER , unspecified gestational age (HC) from Last 3 Months or Most Recently Relevant to Health Maintenance Results * (ABNORMAL) HPV HIGH RISK (12/25/2021 2:18 PM CDT) TYPE 16 Negative Negative 12/27/2021 11:05 AM CDT [facility] TYPE 18 Positive(A) Negative 12/27/2021 11:05 AM CDT [facility] OTHER HIGH RISK TYPES Positive(A) Negative 12/27/2021 11:05 AM CDT [facility] Other (Cervical) Non-Blood / Unknown 12/25/2021 2:18 PM CDT 12/26/2021 8:[address] [facility] - 12/27/2021 11:05 AM CDT Specimen is positive for HPV type 18 DNA and the DNA of any one of, or combination of, the following high risk HPV types: 31, 33, 35, 39, 45, 51, 52, 56, 58,59, 66, 68. HPV type 16 DNA was undetectable or below the pre-set threshold. Methodology: Mariana Yue 4800 HPV Test Zuri Baig DO MICROBIOLOGY Final Resu lt [facility] [address] [place] [address], * ACUTE HEPATITIS PANEL (11/06/2021 2:29 PM CDT) HEPATITIS C ANTIBODY Non-Reactive Non-Reactive 11/06/2021 11:26 PM CDT [facility] Comment:Antibodies to HCV no t detected; does not exclude the possibility of exposure to HCV. IGM ANTI HAV Non-Reactive Non-Reactive 07/26/20 22 11:26 PM CDT [facility] HBSAG Nonreactive Nonreactive 11/06/2021 11:26 PM CDT [facility] IGM ANTI HBC Non-Reactive Non-Reactive 11/07/19 22 11:26 PM CDT [facility] Blood BLOOD SPECIMEN / Unknown Venipuncture / Unknown 11/06/2021 2:29 PM CDT 11/06/2021 2:29 PM CDT Narrative [facility] - 11/06/2021 11:26 PM CDT Anti-HBc IgM not detected. Does not exclude the possibility of exposure to or infection with HBV. Zuri Baig DO SEND OUTS Final Resu lt [facility] [address] [place] [address], [place] * ANTI HIV 1/2 (05/16/2015 9:17 AM CREAM DUMPER) HIV-1/HIV-2 ANTIBODY Non-Reacti ve Non-Reacti ve 05/16/2015 5:54 PM CREAM DUMPER [facility] Blood specimen (specimen) BLOOD SPECIMEN / Unknown Venipuncture / Unknown 05/16/2015 9:17 AM CREAM DUMPER 05/16/2015 9:17 AM CREAM DUMPER Narrative [facility] - 05/16/2015 5:54 PM CREAM DUMPER HIV-1 p24 and HIV-1/HIV-2 Ab not detected Maggy Sanchez PA SEND OUTS Final R esult [facility] [address] [place] [address], [place] from Last 3 Months or Most Recently Relevant to Health Maintenance Additional Health Concerns Infection Onset Date Last Indicated MRSA Clearance Comment:Infection Control Note: Hx of MRSA surveillance criteria met, no need for further testing or isolation precautions. Do not delete or deactivate the FYI. Nares surveillance cultures needed to clear patient. #1 11/09/2015 - negative nares #2 11/30/2015 neg 12/08/2015 12/08/2015 Insurance SHARONDA MOORE Advance Directives * Full Code (Latest Code Status on File) Date Activated Date Inactivated Comments 12/07/2015 5:46 PM 12/10/2015 2:26 PM * Full Code Date Activated Date Inactivated Comments 12/07/2015 1:00 PM 12/07/2015 5:46 PM * Full Code Date Activated Date Inactivated Comments 11/09/2015 12:40 AM 11/10/2015 4:12 PM Care Teams Rn Social Work Relationship Specialty Start Date End Date Zuri Baig [place] [address] PCP - General Family Practice 05/16/15
[2025-03-17 03:52] VITALS: BP 154/84; PULSE 112; RESP 16; TEMP 36.5; O2SAT 98; BMI 32.4
--- NOTE | 2025-03-17 03:59 | ED_ITS ---
HPI - General Adult General Time Seen by Provider: 03:59 Date Seen: 03/17/25 Chief complaint: Urogenital Problems, Female Stated complaint: tampon stuck Time Seen by Provider: 03/17/25 03:59 Source: patient and family () Mode of arrival: ambulatory History of Present Illness HPI narrative: Jessica is a 39-year-old female with past medical history of alcohol use disorder who presents the emergency department with concerns of tampon stuck in her vagina. Patient reports she recently finished her menstrual cycle yesterday on Friday. Patient reports she feels as if she has a tampon stuck in her vagina is unable to get it out. No other complaints. Related Data Previous Rx's ?Medication ?Instructions ?Recorded pantoprazole 40 mg tablet,delayed 40 mg PO DAILY #30 t abs 03/03/24 release (Protonix) Allergies Allergy/AdvReac Type Severity Reaction Status Date / Time No Known Drug Allergies Allergy Verified 03/17/25 03:55 Review of Systems Narrative: Past medical history, past surgical history, medications, allergies, family history, and social history were reviewed with the patient. No additional pertinent items. A medically appropriate review of systems was performed with pertinent positives and negatives noted in HPI, all other systems negative. [facility] Medical History (Updated 03/17/25 @ 04:35 by Corazon Myers MD) Hyperglycemia ?R73.9 - Hyperglycemia, unspecified (ICD-10) Obesity ?E66.9 - Obesity, unspecified (ICD-10) Migraines ?G43.909 - Migraine, unspecified, not intractable, without status migrainosus (ICD-10) Vitamin B12 deficiency ?E53.8 - Deficiency of other specified B group vitamins (ICD-10) History of gastric ulcer ?Z87.11 - Personal history of peptic ulcer disease (ICD-10) Alcohol use disorder ?F10.90 - Alcohol use, unspecified, uncomplicated (ICD-10) Social History What is your current living situation?: I presently have a place to live Problems where you live: no known problems Problems where you live details: NA In the past 12 months, utilities in danger of being shut off: no In past 12 months, lack of transportation kept you from medical appts, meetings, work, or getting things needed for daily living: no In the past 12 mos, have been you worried that your food would run out before you had money to buy more?: never true In the past 12 mos, the food you bought just didn't last and you didn't have money to buy more?: never true Highest level of school completed/degree received: Associate degree: occupational, technical, vocational program Smoking Status: Light tobacco smoker What tobacco products do you use: cigarettes Smoking packs per day: 0.5 Smoking cigarettes per day: 10.0 Years smoked: 25 Smoking pack-years: 12.50 Second hand tobacco smoke exposure: No How often do you have a drink containing alcohol: 4 or more times a week Alcohol type: hard liquor How many standard drinks containing alcohol do you have on a typical day: 5 or 6 How often do you have six or more drinks on one occasion: Weekly AUDIT-C Alcohol total score: 9 Non-prescribed substance use: marijuana (any form) Caffeine: No How often does anyone, including family, friends and others, physically hurt you : never How often does anyone, including family, friends and others, insult or talk down to you: never How often does anyone, including family, friends and others, threaten you with harm: never How often does anyone, including family, friends and others, scream or curse at you: never service: No Exam Narrative: Exam Narrative: General: Afebrile, no acute distress HEENT: Normocephalic, atraumatic, conjunctiva normal. MMM Neck: non-tender, supple Cardio: regular rate. regular rhythm Resp: Normal work of breathing, no respiratory distress, lungs clear bilaterally, no wheezing, rhonchi, rales Chest/Back: no visual signs of trauma, no midline tenderness, no CVA tenderness Abdomen: soft, non distension, no tenderness, no peritoneal signs : normal external genitalia, FB tampon visualized in vaginal canal - FB easily removed with forceps, no other FB identified, no discharge Neuro: alert and fully oriented. CN II-XII grossly intact. Grossly normal strength and sensation in all extremities. MSK: no deformities. Normal range of motion Integumentary/Skin: no rash visualized, normal color Psych: normal affect, normal behavior Const: Vital Signs, click to edit/add: Vital Signs - 24 hr 03/17/25 03:52 Temperature 97.7 F Pulse Rate [Right] 112 H Respiratory Rate 16 Blood Pressure [Ri ght Upper Arm] 154/84 H Pulse Oximetry 98 Oxygen Delivery Me thod Room Air Course Vital Signs Vital signs: Initial Vital Signs Temperature 97.7 F 03/17/25 03:52 Temperature Source Temporal Artery Scan 03/17/25 03:52 Pulse Rate 112 H 03/17/25 03:52 Pulse Rhythm Regular 03/17/25 03:52 Pulse Strength 3+ Normal 03/17/25 03:52 Respiratory Rate 16 03/17/25 03:52 Blood Pressure 154/84 H 03/17/25 03:52 Blood Pressure Mean 107 H 03/17/25 03:52 Blood Pressure Position Supine 03/17/25 03:52 Pulse Oximetry 98 03/17/25 03:52 Oxygen Delivery Method Room Air 03/17/25 03:52 Vital Signs Temperature 97.7 F 03/17/25 03:52 Pulse Rate 112 H 03/17/25 03:52 Respiratory Rate 16 03/17/25 03:52 Blood Pressure 154/84 H 03/17/25 03:52 Pulse Oximetry 98 03/17/25 03:52 Oxygen Delivery Method Room Air 03/17/25 03:52 Temperature 97.7 F 03/17/25 03:52 Pulse Rate 112 H 03/17/25 03:52 Respiratory Rate 16 03/17/25 03:52 Blood Pressure 154/84 H 03/17/25 03:52 Pulse Oximetry 98 03/17/25 03:52 Oxygen Delivery Method Room Air 03/17/25 03:52 Medications Administered Medications: Generic Name Dose Route Start Last Admin Trade Name Freq PRN Reason Stop Dose Admin Ibuprofen 600 mg 03/17/25 04:25 03/17/25 04:31 Ibuprofen 200 Mg Tablet PO 03/17/25 04:26 600 mg ONCE ONE Administration Medical Decision Making MDM Narrative Medical decision making narrative: Jessica is a 39-year-old femur here with foreign body in her vagina. Upon arrival patient is nontoxic appearing, afebrile, in distress. Patient is slightly tachycardic with heart rate of 112, hypertensive with blood pressure 154/84, oxygen 98% on room air. examination was performed and tampon was easily removed using forceps. No other evidence of foreign body, no discharge. Wet prep was sent and was negative for trichomonas, BV, yeast. Patient nontoxic appearing, discussed with patient will hold off on antibiotics at this time. Recommend close outpatient follow-up, strict return precautions discussed. Patient understands and agrees with the plan. Lab Data Labs: Lab Results 03/17/25 Range/Units 04:24 Vaginal Trichomonas No Trichomonas Seen (None Seen) Vaginal Yeast No Yeast Seen (None Seen) Vaginal Clue Cells No Clue Cells Seen (None Seen) Discharge Plan Discharge Clinical Impression: Foreign body in vagina Patient Disposition: Home, Self-Care Condition: Stable Additional Instructions: Please follow-up with your primary care provider as needed. Please take Tylenol or ibuprofen as needed for pain. Please avoid inserting anything into the vagina for the next 24 hours. Return to the emergency department if any worsening symptoms. It was a pleasure taking care of you today. We hope you feel better soon. Prescriptions: No Action pantoprazole [Protonix] 40 mg tablet,delayed release (DR/EC) 40 mg PO DAILY Qty: 30 0RF Follow Up/Referrals: Zuri Baig DO [Primary Care Provider, Family Practice] Stand Alone Forms: ethology Info Instructions
[2025-03-17] MEDS: IBUPROFEN 200 MG TABLET 600 MG PO (04:31)
[2025-03-17 04:33] LABS: Trichomonas No Trichomonas Seen (None Seen)
== END 2025-03-17 04:41 | disposition home or self-care (01) ==
PROVIDERS: Emergency Provider Emergency Medicine; PCP Family Medicine
DX: T19.2XXA Foreign body in vulva and vagina, initial encounter (principal); W44.8XXA Other foreign body entering into or through a natural orifice, initial encounter
CPT/HCPCS: 87210; 99283; 99285; A9270